=== PATIENT | male | born 1975 | race Caucasian/White ===

== ENCOUNTER 2016-06-01 04:42 | Emergency (ER) | payer BC ==
[~2016-06-01] VITALS: Ht 172.7 cm; Wt 71.7 kg
[~2016-06-01 04:42] MED LIST: METO25 PO; NOVOLOGP2 SQ; ZOFR4TAB3 SL
[2016-06-01 04:50] VITALS: BP 157/93; PULSE 104; RESP 16; TEMP 100; O2SAT 98
[2016-06-01 05:05] VITALS: BP 155/86; PULSE 94; RESP 18; O2SAT 98
[2016-06-01 05:31] VITALS: O2SAT 98
[2016-06-01 05:37] LABS: BLOOD, URINE SMALL (NEG); NITRITE,URINE NEG (NEG); PH, URINE 5.5 (5.0-8.5)
[2016-06-01 05:39] LABS: AUTOMATED NEUTROPHIL # 8.2 TH/MM3 (1.8-7.7); BASOPHIL % 0.1 % (0.0-2.0); EOSINOPHIL % 0.1 % (0.0-4.0); HEMATOCRIT 44.5 % (39.0-51.0); LYMPH % 10.4 % (9.0-44.0); LYMPHOCYTE # 1.1 TH/MM3 (1.0-4.8); MEAN CELL VOLUME 88.1 FL (80.0-100.0); MEAN CORPUSCULAR HEMOGLOBIN 29.6 PG (27.0-34.0); MEAN CORPUSCULAR HGB CONC 33.6 % (32.0-36.0); NEUT % 80.4 % (16.0-70.0); PLATELET COUNT 137 TH/MM3 (150-450); RED BLOOD COUNT 5.06 MIL/MM3 (4.50-5.90); RED CELL DISTRIBUTION WIDTH 11.6 % (11.6-17.2); WHITE BLOOD COUNT 10.2 TH/MM3 (4.0-11.0)
[2016-06-01 05:41] LABS: HEMO FLAGS DIFF FINAL
[2016-06-01] MEDS ORDERED: ONDANSETRON HCL 4 MG/2 ML VIAL IV ONE (05:45)
[2016-06-01 05:48] LABS: CHLORIDE 99 MEQ/L (98-107); POTASSIUM 4.2 MEQ/L (3.5-5.1); SODIUM (NA) 136 MEQ/L (136-145)
[2016-06-01] MEDS: SODIUM CHLOR 0.9% 1000 ML INJ 1,000 ML IV SCH ×2 (05:49→06:36)
[2016-06-01 05:51] LABS: ANION GAP 15 MEQ/L (5-15); BICARBONATE 22.4 MEQ/L (21.0-32.0)
[2016-06-01 05:52] LABS: BLOOD UREA NITROGEN 20 MG/DL (7-18); GLUCOSE,URINE 1000 OR GREATER mg/dL (NEG); KETONE, URINE 80 OR GREATER mg/dL (NEG); URINE COLOR YELLOW (YELLW/STRAW)
[2016-06-01 05:53] LABS: COMMENT (UR) CULT NOT INDICATED; CULTURE IF INDICATED CULT NOT INDICATED; RBC, URINE 0-3 /hpf (0-3); SQUAMOUS EPITHELIAL CELL URINE 0-5 /hpf (0-5); WBC, URINE 0-2 /hpf (0-5)
[2016-06-01 05:54] LABS: ALT (GPT) 17 U/L (12-78); AST (GOT) 17 U/L (15-37); GLOMERULAR FILTRATION RATE 73 ML/MIN (>89)
--- NOTE | 2016-06-01 05:54 | PD ---
HPI Chief Complaint: GI Complaint Time Seen by Provider: 05:42 Travel History International Travel<30 days: No Contact w/Intl Traveler<30days: No Traveled to known affect area: No History of Present Illness HPI The patient is a 40-year-old insulin-dependent diabetic that has been vomiting for 1 day. Yesterday morning he also had diarrhea. He has an insulin pump but his blood glucose is elevated at 321 year. He does drink beer, 5-6 beers daily and his last drink was 2 beers yesterdayWednday. He denies vomiting any blood. He has some abdominal pain to the right of the umbilicus. He still has his appendix and gallbladder. PFSH Past Medical History Arthritis: No Asthma: No Autoimmune Disease: No Blood Disorders: No Anxiety: No Depression: No Heart Rhythm Problems: No Cancer: No Cardiovascular Problems: Yes High Cholesterol: No Chemotherapy: No Chest Pain: No Congestive Heart Failure: No COPD: No Cerebrovascular Accident: No Diabetes: Yes (TYPE 1 - PT HAS INSULIN PUMP) Patient Takes Glucophage: No Diminished Hearing: No Endocrine: Yes GERD: Yes Glaucoma: No Genitourinary: No Headaches: No Hepatitis: No Hiatal Hernia: No Hypertension: Yes Immune Disorder: No Kidney Stones: No Medical other: Yes (GASTROPARESIS) Musculoskeletal: No Neurologic: No Psychiatric: No Reproductive: No Respiratory: No Immunizations Current: Yes Migraines: No Myocardial Infarction: No Radiation Therapy: No Renal Failure: No Seizures: No Sickle Cell Disease: No Sleep Apnea: No Thyroid Disease: No Ulcer: No Tetanus Vaccination: > 5 Years Influenza Vaccination: No Past Surgical History Surgical History: No Previous Surgery Abdominal Surgery: No AICD: No Appendectomy: No Arteriovenous Shunt: No Cardiac Surgery: No Cholecystectomy: No Ear Surgery: Yes (TUBES IN EARS A CHILD) Endocrine Surgery: No Eye Surgery: No Genitourinary Surgery: No Gynecologic Surgery: No Insulin Pump: Yes Joint Replacement: No Neurologic Surgery: No Oral Surgery: No Pacemaker: No Thoracic Surgery: No Other Surgery: Yes (INSULIN PUMP) Social History Alcohol Use: Yes (5 BEERS/DAY) Tobacco Use: No Substance Use: No Allergies-Medications (Allergen,Severity, Reaction): Coded Allergies: No Known Allergies (Verified , 06/01/16) Reported Meds & Prescriptions Reported Meds & Active Scripts Active Reported [blood pressure pill] Novolog (Insulin Aspart) Unknown Strength Inj Unknown Dose SQ PUMP Review of Systems Except as stated in HPI: all other systems reviewed are Neg Physical Exam Narrative GENERAL: The patient appears slightly dehydrated, alert, oriented 3 and moderate apparent distress with his abdominal pain. His vital signs show temperature 100.0 with a heart rate of 104 and blood pressure 157/93 but are otherwise normal. He does not smell of acetone or beer. SKIN: Focused skin assessment warm/dry. HEAD: Atraumatic. Normocephalic. EYES: Pupils equal and round. No scleral icterus. No injection or drainage. ENT: No nasal bleeding or discharge. Mucous membranes pink and moist. NECK: Trachea midline. No JVD. CARDIOVASCULAR: Regular rate and rhythm. No murmur appreciated. RESPIRATORY: No accessory muscle use. Clear to auscultation. Breath sounds equal bilaterally. GASTROINTESTINAL: Abdomen soft, with tenderness to direct palpation to the right of the umbilicus, nondistended. Hepatic and splenic margins not palpable. No guarding or rebound is present. MUSCULOSKELETAL: No obvious deformities. No clubbing. No cyanosis. No edema. NEUROLOGICAL: Awake and alert. No obvious cranial nerve deficits. Motor grossly within normal limits. Normal speech. PSYCHIATRIC: Appropriate mood and affect; insight and judgment normal. Data Data Last Documented VS Vital Signs Date Time Temp Pulse Resp B/P Pulse Ox O2 Delivery O2 Flow Rate FiO2 06/01/16 05:31 98 Room Air 06/01/16 05:05 94 18 155/86 06/01/16 04:50 100.0 Orders Complete Blood Count With Diff (06/01/16 05:15) Comprehensive Metabolic Panel (06/01/16 05:15) Urinalysis - C+S If Indicated (06/01/16 05:15) Iv Access Insert/Monitor (06/01/16 05:15) Oximetry (06/01/16 05:15) Lipase (06/01/16 05:15) Ondansetron Inj (Zofran Inj) (06/01/16 05:45) Sodium Chlor 0.9% 1000 Ml Inj (Ns 1000 M (06/01/16 05:45) Ecg Monitoring (06/01/16 05:54) Sodium Chloride 0.9% Flush (Ns Flush) (06/01/16 06:00) Labs Laboratory Tests Test 3/30/17 05:15 White Blood Count 10.2 TH/MM3 Red Blood Count 5.06 MIL/MM3 Hemoglobin 15.0 GM/DL Hematocrit 44.5 % Mean Corpuscular Volume 88.1 FL Mean Corpuscular Hemoglobin 29.6 PG Mean Corpuscular Hemoglobin 33.6 % Concent Red Cell Distribution Width 11.6 % Platelet Count 137 TH/MM3 Mean Platelet Volume 9.4 FL Neutrophils (%) (Auto) 80.4 % Lymphocytes (%) (Auto) 10.4 % Monocytes (%) (Auto) 9.0 % Eosinophils (%) (Auto) 0.1 % Basophils (%) (Auto) 0.1 % Neutrophils # (Auto) 8.2 TH/MM3 Lymphocytes # (Auto) 1.1 TH/MM3 Monocytes # (Auto) 0.9 TH/MM3 Eosinophils # (Auto) 0.0 TH/MM3 Basophils # (Auto) 0.0 TH/MM3 CBC Comment DIFF FINAL Differential Comment Urine Color YELLOW Urine Turbidity CLEAR Urine pH 5.5 Urine Specific [place] 1.034 Urine Protein TRACE mg/dL Urine Glucose (UA) 1000 OR GREATER mg/dL Urine Ketones 80 OR GREATER mg/dL Urine Occult Blood SMALL Urine Nitrite NEG Urine Bilirubin NEG Urine Leukocyte Esterase NEG Urine RBC 0-3 /hpf Urine WBC 0-2 /hpf Urine Squamous Epithelial 0-5 /hpf Cells Urine Bacteria NONE /hpf Microscopic Urinalysis Comment CULT NOT INDICATED Sodium Level 136 MEQ/L Potassium Level 4.2 MEQ/L Chloride Level 99 MEQ/L Carbon Dioxide Level 22.4 MEQ/L Anion Gap 15 MEQ/L Blood Urea Nitrogen 20 MG/DL Creatinine 1.10 MG/DL Estimat Glomerular Filtration 73 ML/MIN Rate Random Glucose 337 MG/DL Calcium Level 8.8 MG/DL Total Bilirubin 0.8 MG/DL Aspartate Amino Transf 17 U/L (AST/SGOT) Alanine Aminotransferase 17 U/L (ALT/SGPT) Alkaline Phosphatase 72 U/L Total Protein 7.6 GM/DL Albumin 3.9 GM/DL Lipase 85 U/L [facility] Medical Decision Making Medical Screen Exam Complete: Yes Emergency Medical Condition: Yes Medical Record Reviewed: Yes Interpretation(s) The CBC is normal except for a platelet count of 137,080% neutrophils. The complete metabolic profile shows a BUN of 20, glucose 337 but is otherwise normal. The lipase is normal. The urine shows 1000 or greater glucose, 8 or greater ketones but is otherwise normal and culture is not indicated. Differential Diagnosis Gastroenteritis, pancreatitis, dehydration, electrolyte disorder, acute appendicitisunlikely, enteric colitis, hypo-/hyperglycemia Narrative Course The patient likely has a viral gastroenteritis. He has a sensitive stomach and has a predilection for developing gastritis. The etiology this time is probably viral but his alcohol use is another possibility. Plan: The patient will discontinue alcohol and is given a prescription for Phenergan. He needs to drink clear liquids. He has adjusted his insulin pump to accommodate the slightly over 300 blood sugar that he came in with. Diagnosis Primary Impression: Viral gastroenteritis Additional Instructions: Zofran 8 mg as one tablet every 8 hours. Take it regularly for the first day or 2 so that you do not get nauseated. Follow-up with your primary care physician next week. Return to emergency department if you begin vomiting again and cannot hold on your Zofran. Med/Other Pt SpecificInfo: Prescription(s) given Scripts Ondansetron (Zofran)8 Mg Tab8 Mg PO TID #28 TAB Ref 0 Prov:Nayan Myles MD 06/01/16 Disposition: 01 DISCHARGE HOME Condition: Stable Nayan Myles MD Jun 01, 2016 05:54
[2016-06-01 05:56] LABS: TOTAL BILIRUBIN ADULT 0.8 MG/DL (0.2-1.0)
[2016-06-01 05:57] LABS: ALKALINE PHOSPHATASE 72 U/L (45-117)
[2016-06-01] MEDS ORDERED: SODIUM CHLORIDE 0.9% FLUSH 10 ML FLUSH IV FLUSH PRN (06:00)
[2016-06-01] MEDS ORDERED: blood pressure pill (06:15)
[2016-06-01] MEDS ORDERED: ZOFR8TAB PO (07:06)
[2016-06-01 07:21] VITALS: BP 147/80
== END 2016-06-01 07:23 | disposition home or self-care (01) ==
LOC: PHED 04:42
DX: A08.4 Viral intestinal infection, unspecified (principal); E10.9 Type 1 diabetes mellitus without complications; Z79.4 Long term (current) use of insulin; Z96.41 Presence of insulin pump (external) (internal)
CPT/HCPCS: 80053; 81001; 83690; 85025; 96361; 96374; 99284; J2405; J7030

== ENCOUNTER 2017-04-13 04:49 | Emergency (ER) | payer BC ==
[~2017-04-13] VITALS: Ht 172.7 cm; Wt 70.0 kg
[~2017-04-13 04:49] MED LIST changes: -METO25 PO; -ZOFR4TAB3 SL; +ZOFR8TAB PO; +blood pressure pill
[2017-04-13 04:53] VITALS: BP 166/96; PULSE 120; RESP 16; TEMP 98.2; O2SAT 97
[2017-04-13] MEDS ORDERED: LISI-519 PO (05:15)
[2017-04-13 05:38] LABS: AUTOMATED NEUTROPHIL # 10.8 TH/MM3 (1.8-7.7); BASOPHIL # 0.1 TH/MM3 (0-0.2); BASOPHIL % 0.9 % (0.0-2.0); EOSINOPHIL # 0.1 TH/MM3 (0-0.4); EOSINOPHIL % 0.4 % (0.0-4.0); HEMATOCRIT 46.8 % (39.0-51.0); HEMOGLOBIN 15.8 GM/DL (13.0-17.0); LYMPH % 9.1 % (9.0-44.0); LYMPHOCYTE # 1.2 TH/MM3 (1.0-4.8); MEAN CELL VOLUME 86.3 FL (80.0-100.0); MEAN CORPUSCULAR HEMOGLOBIN 29.1 PG (27.0-34.0); MEAN CORPUSCULAR HGB CONC 33.8 % (32.0-36.0); MEAN PLATELET VOLUME 8.4 FL (7.0-11.0); MONO % 3.6 % (0.0-8.0); MONOCYTE # 0.5 TH/MM3 (0-0.9); PLATELET COUNT 303 TH/MM3 (150-450); RED BLOOD COUNT 5.43 MIL/MM3 (4.50-5.90); RED CELL DISTRIBUTION WIDTH 11.2 % (11.6-17.2); WHITE BLOOD COUNT 12.7 TH/MM3 (4.0-11.0)
[2017-04-13] MEDS ORDERED: PROM1SUP7 RECTAL (05:38)
[2017-04-13] MEDS ORDERED: ONDANSETRON HCL 4 MG/2 ML VIAL IV ONE ×2 (05:45→06:45)
--- NOTE | 2017-04-13 05:45 | PD ---
HPI Chief Complaint: GI Complaint Time Seen by Provider: 05:34 Travel History International Travel<30 days: No Contact w/Intl Traveler<30days: No Traveled to known affect area: No History of Present Illness HPI The patient is a 41-year-old male that states he has been vomiting since Sunday. The patient is an insulin-dependent diabetic and his blood sugars have been as high as 600 at home. He denies any fever, diarrhea or cough. He denies any abdominal pain except for minimal discomfort around the epigastrium. He states he tried a Phenergan suppository and this helped slightly but he continued to vomit. PFSH Past Medical History Arthritis: No Asthma: No Autoimmune Disease: No Blood Disorders: No Anxiety: No Depression: No Heart Rhythm Problems: No Cancer: No Cardiovascular Problems: Yes High Cholesterol: No Chemotherapy: No Chest Pain: No Congestive Heart Failure: No COPD: No Cerebrovascular Accident: No Diabetes: Yes Patient Takes Glucophage: No Diminished Hearing: No Endocrine: Yes Gastrointestinal Disorders: No GERD: Yes Glaucoma: No Genitourinary: No Headaches: No Hepatitis: No Hiatal Hernia: No Heparin Induced Thrombocytopen: No Hypertension: Yes Immune Disorder: No Implanted Vascular Access Dvce: Yes Kidney Stones: No Musculoskeletal: No Neurologic: No Psychiatric: No Reproductive: No Respiratory: No Immunizations Current: Yes Migraines: No Myocardial Infarction: No Radiation Therapy: No Renal Failure: No Seizures: No Sickle Cell Disease: No Sleep Apnea: No Thyroid Disease: No Ulcer: No ?: Not Past Surgical History Abdominal Surgery: No AICD: No Appendectomy: No Arteriovenous Shunt: No Cardiac Surgery: No Cholecystectomy: No Ear Surgery: Yes (TUBES IN EARS A CHILD) Endocrine Surgery: No Eye Surgery: No Genitourinary Surgery: No Gynecologic Surgery: No Insulin Pump: Yes Joint Replacement: No Neurologic Surgery: No Oral Surgery: No Pacemaker: No Thoracic Surgery: No Other Surgery: Yes (INSULIN PUMP) Social History Alcohol Use: Yes (5 BEERS/DAY) Tobacco Use: No Substance Use: No Allergies-Medications (Allergen,Severity, Reaction): Coded Allergies: No Known Allergies (Verified Adverse Reaction, Unknown, 04/13/17) Reported Meds & Prescriptions Reported Meds & Active Scripts Active Zofran (Ondansetron HCl) 8 Mg Tab 8 Mg PO TID Reported Phenergan Supp (Promethazine HCl) 25 Mg Supp 25 Mg RECTAL Q6H PRN Lisinopril 5 Mg Tab 5 Mg PO DAILY [blood pressure pill] Novolog (Insulin Aspart) Unknown Strength Inj Unknown Dose SQ PUMP Review of Systems Except as stated in HPI: all other systems reviewed are Neg Physical Exam Narrative GENERAL: The patient is alert, moderately dehydrated appearing and slight apparent distress with his nausea and vomiting. His vital signs show blood pressure 166/96 with a heart rate of 120 but otherwise are normal. He does not smell of ketones. SKIN: Focused skin assessment warm/dry. HEAD: Atraumatic. Normocephalic. EYES: Pupils equal and round. No scleral icterus. No injection or drainage. ENT: No nasal bleeding or discharge. Mucous membranes pink and relatively dry. NECK: Trachea midline. No JVD. CARDIOVASCULAR: Regular rate and rhythm. No murmur appreciated. RESPIRATORY: No accessory muscle use. Clear to auscultation. Breath sounds equal bilaterally. GASTROINTESTINAL: Abdomen soft, with tenderness to direct palpation in the midline epigastrium and periumbilical area, nondistended. Hepatic and splenic margins not palpable. No guarding or rebound is present. MUSCULOSKELETAL: No obvious deformities. No clubbing. No cyanosis. No edema. NEUROLOGICAL: Awake and alert. No obvious cranial nerve deficits. Motor grossly within normal limits. Normal speech. PSYCHIATRIC: Appropriate mood and affect; insight and judgment normal. Data Data Last Documented VS Vital Signs Date Time Temp Pulse Resp B/P (MAP) Pulse Ox O2 Delivery O2 Flow Rate FiO2 04/13/17 06:31 98 16 177/82 (113) 100 Room Air 04/13/17 04:53 98.2 Orders Orders Complete Blood Count With Diff (04/13/17 05:28) Comprehensive Metabolic Panel (04/13/17 05:28) Iv Access Insert/Monitor (04/13/17 05:41) Ecg Monitoring (04/13/17 05:41) Oximetry (04/13/17 05:41) Ondansetron Inj (Zofran Inj) (04/13/17 05:45) Sodium Chlor 0.9% 1000 Ml Inj (Ns 1000 M (04/13/17 05:45) Lipase (04/13/17 05:30) Insulin Human Regular Inj (Novolin R Inj (04/13/17 06:45) Ondansetron Inj (Zofran Inj) (04/13/17 06:45) Sodium Chlor 0.9% 1000 Ml Inj (Ns 1000 M (04/13/17 07:00) Prochlorperazine Inj (Compazine Inj) (04/13/17 07:00) Labs Laboratory Tests Test 04/13/17 05:30 White Blood Count 12.7 TH/MM3 Red Blood Count 5.43 MIL/MM3 Hemoglobin 15.8 GM/DL Hematocrit 46.8 % Mean Corpuscular Volume 86.3 FL Mean Corpuscular Hemoglobin 29.1 PG Mean Corpuscular Hemoglobin Concent 33.8 % Red Cell Distribution Width 11.2 % Platelet Count 303 TH/MM3 Mean Platelet Volume 8.4 FL Neutrophils (%) (Auto) 86.0 % Lymphocytes (%) (Auto) 9.1 % Monocytes (%) (Auto) 3.6 % Eosinophils (%) (Auto) 0.4 % Basophils (%) (Auto) 0.9 % Neutrophils # (Auto) 10.8 TH/MM3 Lymphocytes # (Auto) 1.2 TH/MM3 Monocytes # (Auto) 0.5 TH/MM3 Eosinophils # (Auto) 0.1 TH/MM3 Basophils # (Auto) 0.1 TH/MM3 CBC Comment DIFF FINAL Differential Comment Blood Urea Nitrogen 51 MG/DL Creatinine 2.00 MG/DL Random Glucose 347 MG/DL Total Protein 8.9 GM/DL Albumin 4.6 GM/DL Calcium Level 9.1 MG/DL Alkaline Phosphatase 96 U/L Aspartate Amino Transf (AST/SGOT) 17 U/L Alanine Aminotransferase (ALT/SGPT) 15 U/L Total Bilirubin 0.9 MG/DL Sodium Level 121 MEQ/L Potassium Level 3.4 MEQ/L Chloride Level 79 MEQ/L Carbon Dioxide Level 29.4 MEQ/L Anion Gap 13 MEQ/L Estimat Glomerular Filtration Rate 37 ML/MIN Lipase 52 U/L MDM Medical Decision Making Medical Screen Exam Complete: Yes Emergency Medical Condition: Yes Medical Record Reviewed: Yes Interpretation(s) The white count is 12,700 with 86% neutrophils. The complete metabolic profile shows a sodium of 121, potassium 3.4, BUN of 51, creatinine of 2.0 with a GFR of 37. The glucose is 347 and total protein 8.9. The lipase is normal. Differential Diagnosis Gastritis, diabetic ketoacidosis, dehydration, electrolyte disorder, renal insufficiency Narrative Course It is now 0704 and the patient is still nauseated after 8 mg of Zofran IV. He was just given 10 mg of prochlorperazine IV. He is already had 2 L of saline and will be given 2 more. Nayan Myles MD Apr 13, 2017 05:45
[2017-04-13] MEDS: SODIUM CHLOR 0.9% 1000 ML INJ 1,000 ML IV SCH ×4 (05:48→08:08)
[2017-04-13 06:03] LABS: ALBUMIN 4.6 GM/DL (3.4-5.0); ALKALINE PHOSPHATASE 96 U/L (45-117); ALT (GPT) 15 U/L (12-78); AST (GOT) 17 U/L (15-37); BICARBONATE 29.4 MEQ/L (21.0-32.0); BLOOD UREA NITROGEN 51 MG/DL (7-18); CALCIUM 9.1 MG/DL (8.5-10.1); CHLORIDE 79 MEQ/L (98-107); GLOMERULAR FILTRATION RATE 37 ML/MIN (>89); GLUCOSE,RANDOM 347 MG/DL (74-106); TOTAL BILIRUBIN ADULT 0.9 MG/DL (0.2-1.0); TOTAL PROTEIN 8.9 GM/DL (6.4-8.2)
[2017-04-13 06:05] LABS: SODIUM (NA) 121 MEQ/L (136-145)
[2017-04-13 06:31] VITALS: BP 177/82; PULSE 98; RESP 16; O2SAT 100
[2017-04-13] MEDS ORDERED: INSULIN HUMAN REGULAR 1,000 UNITS/10 ML VIAL IV PUSH ONE (06:45)
[2017-04-13] MEDS ORDERED: PROCHLORPERAZINE INJ 10 MG/2 ML VIAL IV PUSH ONE (07:00)
--- NOTE | 2017-04-13 07:11 | PD ---
Data Data Last Documented VS Vital Signs Date Time Temp Pulse Resp B/P (MAP) Pulse Ox O2 Delivery O2 Flow Rate FiO2 04/13/17 09:20 88 16 167/94 (118) 98 04/13/17 06:31 Room Air 04/13/17 04:53 98.2 Orders Orders Complete Blood Count With Diff (04/13/17 05:28) Comprehensive Metabolic Panel (04/13/17 05:28) Iv Access Insert/Monitor (04/13/17 05:41) Ecg Monitoring (04/13/17 05:41) Oximetry (04/13/17 05:41) Ondansetron Inj (Zofran Inj) (04/13/17 05:45) Sodium Chlor 0.9% 1000 Ml Inj (Ns 1000 M (04/13/17 05:45) Lipase (04/13/17 05:30) Insulin Human Regular Inj (Novolin R Inj (04/13/17 06:45) Ondansetron Inj (Zofran Inj) (04/13/17 06:45) Sodium Chlor 0.9% 1000 Ml Inj (Ns 1000 M (04/13/17 07:00) Prochlorperazine Inj (Compazine Inj) (04/13/17 07:00) Basic Metabolic Panel (Bmp) (04/13/17 07:52) Protein Corrected Calcium(Pcc) (04/13/17 08:16) Calcium Carbonate Chew (Tums Chew) (04/13/17 09:00) Ed Discharge Order (04/13/17 09:06) Labs Laboratory Tests Test 04/13/17 05:30 04/13/17 08:16 White Blood Count 12.7 TH/MM3 Red Blood Count 5.43 MIL/MM3 Hemoglobin 15.8 GM/DL Hematocrit 46.8 % Mean Corpuscular Volume 86.3 FL Mean Corpuscular Hemoglobin 29.1 PG Mean Corpuscular Hemoglobin Concent 33.8 % Red Cell Distribution Width 11.2 % Platelet Count 303 TH/MM3 Mean Platelet Volume 8.4 FL Neutrophils (%) (Auto) 86.0 % Lymphocytes (%) (Auto) 9.1 % Monocytes (%) (Auto) 3.6 % Eosinophils (%) (Auto) 0.4 % Basophils (%) (Auto) 0.9 % Neutrophils # (Auto) 10.8 TH/MM3 Lymphocytes # (Auto) 1.2 TH/MM3 Monocytes # (Auto) 0.5 TH/MM3 Eosinophils # (Auto) 0.1 TH/MM3 Basophils # (Auto) 0.1 TH/MM3 CBC Comment DIFF FINAL Differential Comment Blood Urea Nitrogen 51 MG/DL 41 MG/DL Creatinine 2.00 MG/DL 1.40 MG/DL Random Glucose 347 MG/DL 154 MG/DL Total Protein 8.9 GM/DL 5.8 GM/DL Albumin 4.6 GM/DL Calcium Level 9.1 MG/DL 6.8 MG/DL Alkaline Phosphatase 96 U/L Aspartate Amino Transf (AST/SGOT) 17 U/L Alanine Aminotransferase (ALT/SGPT) 15 U/L Total Bilirubin 0.9 MG/DL Sodium Level 121 MEQ/L 132 MEQ/L Potassium Level 3.4 MEQ/L 3.5 MEQ/L Chloride Level 79 MEQ/L 97 MEQ/L Carbon Dioxide Level 29.4 MEQ/L 29.0 MEQ/L Anion Gap 13 MEQ/L 6 MEQ/L Estimat Glomerular Filtration Rate 37 ML/MIN 55 ML/MIN Lipase 52 U/L Protein Corrected Calcium 7.5 MG/DL MDM Supervised Visit with RANJANA: No Narrative Course Patient CARE soon from Dr. Myles of [facility], this is a 41-year-old diabetic male who presented with nausea vomiting. Several prior presentations for same. He was given antiemetics Compazine, 2 L of fluid according to orders but according to nursing the patient received a total of 4 L of fluid. He did have an elevated creatinine to 2.0, sugar was elevated at 350 range as well. He did have some insulin while in the emergency department. I sent a repeat BMP which shows improvement in all the electrolytes and BUN and creatinine as well as his sugar, his calcium is somewhat low now, he was given calcium carbonate in the emergency department, discussed he should take Tums for the next week, Zofran prescribed. On reassessment he has benign abdomen and states he is feeling 100 % better. No evidence of DKA. He is stable for discharge Diagnosis Primary Impression: Nausea & vomiting Additional Impression: Dehydration Med/Other Pt SpecificInfo: Prescription(s) given Scripts Ondansetron (Zofran) 4 Mg Tab 4 MG PO Q6HR Y for NAUSEA OR VOMITING, #20 TAB 0 Refills Prov: Brando Maddox MD 04/13/17 Disposition: 01 DISCHARGE HOME Condition: Stable Brando Maddox MD Apr 13, 2017 07:11
[2017-04-13 08:39] LABS: CALCIUM 6.8 MG/DL (8.5-10.1)
[2017-04-13 08:58] LABS: CALCIUM-PROTEIN CORRECTED 7.5 MG/DL (8.5-10.1); CREATININE 1.4 MG/DL (0.60-1.30); TOTAL PROTEIN 5.8 GM/DL (6.4-8.2)
[2017-04-13] MEDS ORDERED: CALCIUM CARBONATE 500 MG CHEWABLE TAB CHEW ONE (09:00)
[2017-04-13] MEDS ORDERED: ZOFR4TAB PO (09:06)
[2017-04-13 09:20] VITALS: BP 167/94
== END 2017-04-13 09:22 | disposition home or self-care (01) ==
LOC: PHED 04:49
DX: R11.2 Nausea with vomiting, unspecified (principal); E86.0 Dehydration; E11.65 Type 2 diabetes mellitus with hyperglycemia; I10 Essential (primary) hypertension; K21.9 Gastro-esophageal reflux disease without esophagitis; Z79.4 Long term (current) use of insulin
CPT/HCPCS: 80053; 83690; 84155; 85025; 96361; 96374; 96375; 96376; 99284; J0780; J1815; J2405; J7030; 80048

== ENCOUNTER 2017-05-25 11:57 | Inpatient (IN) | payer BC ==
[~2017-05-25] VITALS: Ht 172.7 cm; Wt 76.5 kg
[2017-05-25] VITALS (11 sets, daily range): BP systolic 102–184; BP diastolic 55–103; PULSE 88–132; RESP 16–22; TEMP 97.8–98.7; O2SAT 98–99
[~2017-05-25 11:57] MED LIST changes: +LISI-519 PO; +PROM1SUP7 RECTAL; +ZOFR4TAB PO
[2017-05-25] MEDS ORDERED: SODIUM CHLOR 0.9% 1000 ML INJ 1,000 ML IV ONE ×2 (13:29→14:45)
[2017-05-25] MEDS ORDERED: SODIUM CHLORIDE 0.9% FLUSH 10 ML FLUSH IV FLUSH PRN (13:30)
[2017-05-25] MEDS ORDERED: SODIUM CHLORIDE 0.9% FLUSH 10 ML FLUSH IVF PRN (13:30)
[2017-05-25] MEDS ORDERED: METOCLOPRAMIDE HCL 10 MG/2 ML VIAL IV PUSH ONE (13:30)
--- NOTE | 2017-05-25 13:31 | PD ---
HPI Chief Complaint: GI Complaint Time Seen by Provider: 13:29 Travel History International Travel<30 days: No Contact w/Intl Traveler<30days: No Traveled to known affect area: No History of Present Illness HPI 41-year-old male patient with history of diabetes, gastroparesis, DKA, presents to the ER today for 2 days history of nausea, vomiting, cannot keep anything down. He denies any fevers, diarrhea, or other symptoms. He states that his sugars have been in the 300 range. Modifying Factors: None Associated Signs & Symptoms: Nausea, vomiting, poor p.o. intake Risk Factors: Diabetic PFSH Past Medical History Arthritis: No Asthma: No Autoimmune Disease: No Blood Disorders: No Anxiety: No Depression: No Heart Rhythm Problems: No Cancer: No Cardiovascular Problems: Yes High Cholesterol: No Chemotherapy: No Chest Pain: No Congestive Heart Failure: No COPD: No Cerebrovascular Accident: No Diabetes: Yes Diminished Hearing: No Endocrine: Yes Gastrointestinal Disorders: No GERD: Yes Glaucoma: No Genitourinary: No Headaches: No Hepatitis: No Hiatal Hernia: No Heparin Induced Thrombocytopen: No Hypertension: Yes Immune Disorder: No Implanted Vascular Access Dvce: Yes Kidney Stones: No Musculoskeletal: No Neurologic: No Psychiatric: No Reproductive: No Respiratory: No Immunizations Current: Yes Migraines: No Myocardial Infarction: No Radiation Therapy: No Renal Failure: No Seizures: No Sickle Cell Disease: No Sleep Apnea: No Thyroid Disease: No Ulcer: No Past Surgical History Abdominal Surgery: No AICD: No Appendectomy: No Arteriovenous Shunt: No Cardiac Surgery: No Cholecystectomy: No Ear Surgery: Yes (TUBES IN EARS A CHILD) Endocrine Surgery: No Eye Surgery: No Genitourinary Surgery: No Gynecologic Surgery: No Insulin Pump: Yes Joint Replacement: No Neurologic Surgery: No Oral Surgery: No Pacemaker: No Thoracic Surgery: No Other Surgery: Yes (INSULIN PUMP) Social History Alcohol Use: Yes (5 BEERS/DAY) Tobacco Use: No Substance Use: No Allergies-Medications (Allergen,Severity, Reaction): Coded Allergies: No Known Allergies (Verified Adverse Reaction, Unknown, 05/25/17) Reported Meds & Prescriptions Reported Meds & Active Scripts Active Zofran (Ondansetron HCl) 8 Mg Tab 8 Mg PO TID Reported Phenergan Supp (Promethazine HCl) 25 Mg Supp 25 Mg RECTAL Q6H PRN Lisinopril 5 Mg Tab 5 Mg PO DAILY Novolog (Insulin Aspart) Unknown Strength Inj Unknown Dose SQ PUMP Review of Systems Except as stated in HPI: all other systems reviewed are Neg Physical Exam Narrative GENERAL: Well-developed thin middle-aged male patient currently in moderate distress. Awake and oriented 3. SKIN: Focused skin assessment warm/dry. HEAD: Atraumatic. Normocephalic. EYES: Pupils equal and round. No scleral icterus. No injection or drainage. ENT: No nasal bleeding or discharge. Dry mucous membranes. NECK: Trachea midline. No JVD. CARDIOVASCULAR: Regular rate and rhythm. No murmur appreciated. RESPIRATORY: No accessory muscle use. Clear to auscultation. Breath sounds equal bilaterally. GASTROINTESTINAL: Abdomen soft, non-tender, nondistended. Hepatic and splenic margins not palpable. MUSCULOSKELETAL: No obvious deformities. No clubbing. No cyanosis. No edema. NEUROLOGICAL: Awake and alert. No obvious cranial nerve deficits. Motor grossly within normal limits. Normal speech. PSYCHIATRIC: Appropriate mood and affect; insight and judgment normal. Data Data Last Documented VS Vital Signs Date Time Temp Pulse Resp B/P (MAP) Pulse Ox O2 Delivery O2 Flow Rate FiO2 05/25/17 14:41 106 20 170/90 (116) 98 Room Air 05/25/17 12:01 97.8 Orders Orders Complete Blood Count With Diff (05/25/17 13:21) Comprehensive Metabolic Panel (05/25/17 13:21) Lipase (05/25/17 13:21) Iv Access Insert/Monitor (05/25/17 13:21) Ecg Monitoring (05/25/17 13:21) Oximetry (05/25/17 13:21) Sodium Chloride 0.9% Flush (Ns Flush) (05/25/17 13:30) Beta Hydroxybutyrate (Acetone) (05/25/17 13:29) Urinalysis - C+S If Indicated (05/25/17 13:29) NPO (05/25/17 13:29) Sodium Chloride 0.9% Flush (Ns Flush) (05/25/17 13:30) Sodium Chlor 0.9% 1000 Ml Inj (Ns 1000 M (05/25/17 13:29) Abdomen, Flat & Upright (05/25/17 13:29) Metoclopramide Inj (Reglan Inj) (05/25/17 13:30) Sodium Chlor 0.9% 1000 Ml Inj (Ns 1000 M (05/25/17 14:45) Associate Quality Engineer / Telemetry [email or web address] (05/25/17 15:00) ^ Insert Iv (05/25/17 15:00) Diet Npo (05/25/17 Dinner) Sodium Chlor 0.9% 1000 Ml Inj (Ns 1000 M (05/25/17 15:00) Dext 5%-Nacl 0.9% 1000 Ml Inj (D5w-Ns 10 (05/25/17 15:00) Insulin Human Regular Inj (Novolin R Inj (05/25/17 15:00) Insulin Regular (Iv Infusion) (Novolin R (05/25/17 15:00) Potassium Chlor 40 Meq Premix (Kcl 40 Me (05/25/17 15:00) Potassium Chlor 40 Meq Premix (Kcl 40 Me (05/25/17 15:00) Potassium Chlor 20 Meq Premix (Kcl 20 Me (05/25/17 15:00) Potassium Chlor 20 Meq Premix (Kcl 20 Me (05/25/17 15:00) Potassium Chlor 20 Meq Premix (Kcl 20 Me (05/25/17 15:00) Potassium Chlor 20 Meq Premix (Kcl 20 Me (05/25/17 15:00) Potassium Chlor 20 Meq Premix (Kcl 20 Me (05/25/17 15:00) Potassium Chlor 20 Meq Premix (Kcl 20 Me (05/25/17 15:00) Sodium Bicarbonate 8.4% Inj (Sodium Bica (05/25/17 15:00) Sodium Bicarbonate 8.4% Inj (Sodium Bica (05/25/17 15:00) Sodium Phosphate Inj (Sodium Phosphate I (05/25/17 15:00) Hemoglobin (Hgb) A1c (05/25/17 15:00) Basic Metabolic Panel (Bmp) (05/25/17 20:00) Basic Metabolic Panel (Bmp) (05/26/17 02:00) Basic Metabolic Panel (Bmp) (05/26/17 08:00) Basic Metabolic Panel (Bmp) (05/26/17 14:00) Magnesium (Mg) (05/25/17 20:00) Magnesium (Mg) (05/26/17 02:00) Magnesium (Mg) (05/26/17 08:00) Magnesium (Mg) (05/26/17 14:00) Phosphorus (Po4) (05/25/17 20:00) Phosphorus (Po4) (05/26/17 02:00) Phosphorus (Po4) (05/26/17 08:00) Phosphorus (Po4) (05/26/17 14:00) Beta Hydroxybutyrate (Acetone) (05/26/17 02:00) Beta Hydroxybutyrate (Acetone) (05/26/17 14:00) Arterial Blood Gas (Abg) (05/25/17 15:11) Admit Order (Ed Use Only) (05/25/17 15:17) Labs Laboratory Tests Test 05/25/17 13:20 05/25/17 13:25 White Blood Count 15.4 TH/MM3 Red Blood Count 5.59 MIL/MM3 Hemoglobin 16.1 GM/DL Hematocrit 48.3 % Mean Corpuscular Volume 86.5 FL Mean Corpuscular Hemoglobin 28.9 PG Mean Corpuscular Hemoglobin Concent 33.4 % Red Cell Distribution Width 12.0 % Platelet Count 341 TH/MM3 Mean Platelet Volume 8.6 FL Neutrophils (%) (Auto) 93.4 % Lymphocytes (%) (Auto) 4.4 % Monocytes (%) (Auto) 1.2 % Eosinophils (%) (Auto) 0.6 % Basophils (%) (Auto) 0.4 % Neutrophils # (Auto) 14.3 TH/MM3 Lymphocytes # (Auto) 0.7 TH/MM3 Monocytes # (Auto) 0.2 TH/MM3 Eosinophils # (Auto) 0.1 TH/MM3 Basophils # (Auto) 0.1 TH/MM3 CBC Comment DIFF FINAL Differential Comment Blood Urea Nitrogen 53 MG/DL Creatinine 4.70 MG/DL Random Glucose 488 MG/DL Total Protein 10.4 GM/DL Albumin 5.0 GM/DL Calcium Level 10.6 MG/DL Alkaline Phosphatase 109 U/L Aspartate Amino Transf (AST/SGOT) 9 U/L Alanine Aminotransferase (ALT/SGPT) 12 U/L Total Bilirubin 0.5 MG/DL Sodium Level 126 MEQ/L Potassium Level 4.8 MEQ/L Chloride Level 82 MEQ/L Carbon Dioxide Level 25.0 MEQ/L Anion Gap 19 MEQ/L Estimat Glomerular Filtration Rate 14 ML/MIN Lipase 46 U/L B-Hydroxybutyrate 1.19 MMOL/L MDM Medical Decision Making Medical Screen Exam Complete: Yes Emergency Medical Condition: Yes Medical Record Reviewed: Yes Interpretation(s) Laboratory Tests Test 05/25/17 13:20 05/25/17 13:25 White Blood Count 15.4 TH/MM3 (4.0-11.0) Neutrophils (%) (Auto) 93.4 % (16.0-70.0) Lymphocytes (%) (Auto) 4.4 % (9.0-44.0) Neutrophils # (Auto) 14.3 TH/MM3 (1.8-7.7) Lymphocytes # (Auto) 0.7 TH/MM3 (1.0-4.8) Blood Urea Nitrogen 53 MG/DL (7-18) Creatinine 4.70 MG/DL (0.60-1.30) Random Glucose 488 MG/DL (74-106) Total Protein 10.4 GM/DL (6.4-8.2) Calcium Level 10.6 MG/DL (8.5-10.1) Aspartate Amino Transf (AST/SGOT) 9 U/L (15-37) Sodium Level 126 MEQ/L (136-145) Chloride Level 82 MEQ/L (98-107) Anion Gap 19 MEQ/L (5-15) Estimat Glomerular Filtration Rate 14 ML/MIN (>89) Lipase 46 U/L (73-393) B-Hydroxybutyrate 1.19 MMOL/L (0.00-0.39) Last 24 hours Impressions Abdomen X-Ray 05/25/17 1329 Signed Impressions: Service Date/Time: Thursday, May 25, 2017 13:32 - CONCLUSION: Negative for acute process. Jhon Escobedo MD FACR Differential Diagnosis Metabolic issues versus DKA versus dehydration Narrative Course Lab work shows significant dehydration with elevated BUN and creatinine. IV fluids have been initiated in the ER. His glucose levels are fairly elevated as well. Insulin was given and patient was initiated a DKA protocol. He has an insulin pump but for some reason it has not been giving him enough insulin in the pump was put on hold at this point. My plan would be to admit him for further treatment. Case is discussed with Dr. Lo for admission. Aggregate critical care time was 25 minutes. Time to perform other separately billable procedures was not included in the critical care time. My time did not include minutes spent treating any other patients simultaneously or on activities that did not directly contribute to the patient's treatment. The services I provided to this patient were to treat and/or prevent clinically significant deterioration that could result in: worsening DKA, electrolyte abnormalities, dysrhythmias, I provided critical care services requiring my management, as noted below: Chart data review, documentation time, medication orders and management, vital sign assessments/reviewing monitor data, ordering and reviewing lab tests, ordering and interpreting/reviewing x-rays and diagnostic studies, care of the patient and discussion of the patient with the admitting physicians. Diagnosis Primary Impression: DKA (diabetic ketoacidoses) Additional Impression: Nausea & vomiting Admitting Information Admitting Physician Requests: Admit Jatinder Escamilla MD May 25, 2017 13:31
[2017-05-25 13:38] LABS: AUTOMATED NEUTROPHIL # 14.3 TH/MM3 (1.8-7.7); BASOPHIL # 0.1 TH/MM3 (0-0.2); BASOPHIL % 0.4 % (0.0-2.0); EOSINOPHIL # 0.1 TH/MM3 (0-0.4); EOSINOPHIL % 0.6 % (0.0-4.0); HEMATOCRIT 48.3 % (39.0-51.0); HEMOGLOBIN 16.1 GM/DL (13.0-17.0); LYMPH % 4.4 % (9.0-44.0); LYMPHOCYTE # 0.7 TH/MM3 (1.0-4.8); MEAN CELL VOLUME 86.5 FL (80.0-100.0); MEAN CORPUSCULAR HEMOGLOBIN 28.9 PG (27.0-34.0); MEAN CORPUSCULAR HGB CONC 33.4 % (32.0-36.0); MEAN PLATELET VOLUME 8.6 FL (7.0-11.0); MONO % 1.2 % (0.0-8.0); MONOCYTE # 0.2 TH/MM3 (0-0.9); NEUT % 93.4 % (16.0-70.0); PLATELET COUNT 341 TH/MM3 (150-450); RED BLOOD COUNT 5.59 MIL/MM3 (4.50-5.90); WHITE BLOOD COUNT 15.4 TH/MM3 (4.0-11.0)
[2017-05-25 13:52] LABS: CHLORIDE 82 MEQ/L (98-107); SODIUM (NA) 126 MEQ/L (136-145)
--- NOTE | 2017-05-25 13:53 | RADRPT ---
EXAM DATE/TIME: 05/25/2017 13:32 [facility] COMPARISON: No previous studies available for comparison. INDICATIONS : Nausea and vomiting MEDICAL HISTORY : Diabetes SURGICAL HISTORY : Insulin pump ENCOUNTER: Initial ACUITY: 2 days PAIN SCORE: 0/10 LOCATION: Right lower quadrant Abdomen FINDINGS: Supine and upright views of the abdomen were performed. The abdominal bowel gas pattern is normal. No air fluid levels are seen. No abnormal masses, calcifications, or organomegaly is seen. The visu alized lower lungs are clear. No evidence of free intraperitoneal gas. The osseous structures are u nremarkable. Nipple rings are noted CONCLUSION: Negative for acute process. Jhon Escobedo MD FACR on May 25, 2017 at 13:51 Board Certified Radiologist. This report was verified electronically.
[2017-05-25 13:55] LABS: CALCIUM 10.6 MG/DL (8.5-10.1)
[2017-05-25 14:50] LABS: ALKALINE PHOSPHATASE 109 U/L (45-117); ALT (GPT) 12 U/L (12-78); AST (GOT) 9 U/L (15-37); BLOOD UREA NITROGEN 53 MG/DL (7-18); GLOMERULAR FILTRATION RATE 14 ML/MIN (>89); TOTAL BILIRUBIN ADULT 0.5 MG/DL (0.2-1.0); TOTAL PROTEIN 10.4 GM/DL (6.4-8.2)
[2017-05-25 14:53] LABS: GLUCOSE,RANDOM 488 MG/DL (74-106)
[2017-05-25] MEDS ORDERED: SODIUM BICARBONATE 8.4% SOLN 50 MEQ/50 ML VIAL IV PUSH PRN ×2 (15:00)
[2017-05-25] MEDS ORDERED: SODIUM PHOSPHATE INJ 15 MMOL in SODIUM CHLORIDE 0.9% INJ 100 ML IV PRN (15:00)
[2017-05-25] MEDS ORDERED: POTASSIUM CHLOR 40 MEQ PREMIX 100 ML IV PRN ×2 (15:00)
[2017-05-25] MEDS ORDERED: POTASSIUM CHLOR 20 MEQ PREMIX 100 ML IV PRN ×5 (15:00)
[2017-05-25] MEDS ORDERED: INSULIN HUMAN REGULAR 1,000 UNITS/10 ML VIAL IV PUSH ONE (15:00)
[2017-05-25] MEDS ORDERED: INSULIN REGULAR (IV INFUSION) 100 UNITS in SODIUM CHLORIDE 0.9% INJ 99 ML IV PRN (15:00)
--- NOTE | 2017-05-25 16:10 | HHI.HP ---
HPI Service [facility] Primary Care Physician Navjot Crocker MD Admission Diagnosis DKA/severe dehydration Diagnoses: (1) DKA (diabetic ketoacidoses) Chief Complaint: Nausea, vomiting an elevated glucose Travel History International Travel<30 Days: No Contact w/Intl Traveler <30 Da: No Traveled to Known Affected Are: No History of Present Illness This is a 41-year-old male patient with a known medical history of type 1 diabetes, gastroparesis, GERD and hypertension who presented to the ED for nausea, vomiting and inability to tolerate anything by mouth for 3 days. Patient states that he has checked his blood sugar at home and it was in the 300s for the past week. Patient denies any recent fever, chills, headache, cough, shortness of breath, abdominal pain, diarrhea or dysuria. Patient does follow with an misdraw hand in the outpatient setting and is due to see him next month. Patient does admit to roughly a 10 pound weight loss over the past week due to his sickness. Patient also admits to history of gastroparesis. PCP is Dr. Crocker. Patient presented with DKA and acute kidney injury with anion gap 19, sodium 126, random glucose 488, beta hydroxybutyrate 1.19, creatinine 4.7, BUN 53, GFR 14. Review of Systems Constitutional: COMPLAINS OF: Diaphoretic episodes, Fatigue, Change in appetite , DENIES: Fever, Chills Eyes: DENIES: Blurred vision, Diplopia Respiratory: DENIES: Cough, Sputum production, Shortness of breath Cardiovascular: DENIES: Chest pain Gastrointestinal: COMPLAINS OF: Nausea, Vomiting, DENIES: Abdominal pain, Black stools, Bloody stools, Constipation, Diarrhea Genitourinary: DENIES: Sexual dysfunction Integumentary: DENIES: Abnormal pigmentation Neurologic: DENIES: Abnormal gait Psychiatric: DENIES: Anxiety Except as stated in HPI: all other systems reviewed are Neg Past Family Social History Past Medical History Diabetes Gastroparesis Hypertension Past Surgical History Insulin pump Reported Medications Active Zofran (Ondansetron HCl) 8 Mg Tab 8 Mg PO TID Reported Phenergan Supp (Promethazine HCl) 25 Mg Supp 25 Mg RECTAL Q6H PRN Lisinopril 5 Mg Tab 5 Mg PO DAILY Novolog (Insulin Aspart) Unknown Strength Inj Unknown Dose SQ PUMP Allergies: Coded Allergies: No Known Allergies (Verified Adverse Reaction, Unknown, 05/25/17) Active Ordered Medications Current Medications Medications (Trade) Dose Ordered Sig/Miguelito Route Start Time Stop Time Status Last Admin (NS Flush) 2 ml UNSCH PRN IV FLUSH 05/25/17 13:30 (NS Flush) 2 ml UNSCH PRN IVF 05/25/17 13:30 Sodium Chloride 1,000 ml @ 250 mls/hr Q4H IV 05/25/17 15:00 Dextrose/Sodium Chloride 1,000 ml @ 200 mls/hr Q5H IV 05/25/17 15:00 Insulin Human Regular 100 units/ Sodium Chloride 100 ml @ 6.81 mls/hr TITRATE PRN IV 05/25/17 15:00 Potassium Chloride 100 ml @ 100 mls/hr Q1H PRN IV 05/25/17 15:00 Potassium Chloride 100 ml @ 50 mls/hr Q2H PRN IV 05/25/17 15:00 Potassium Chloride 100 ml @ 100 mls/hr Q1H PRN IV 05/25/17 15:00 Potassium Chloride 100 ml @ 100 mls/hr Q1H PRN IV 05/25/17 15:00 Potassium Chloride 100 ml @ 50 mls/hr Q2H PRN IV 05/25/17 15:00 Potassium Chloride 100 ml @ 50 mls/hr Q2H PRN IV 05/25/17 15:00 Potassium Chloride 100 ml @ 50 mls/hr Q2H PRN IV 05/25/17 15:00 Potassium Chloride 100 ml @ 50 mls/hr Q2H PRN IV 05/25/17 15:00 05/25/17 16:02 (Sodium Bicarbonate 8.4% Inj) 100 meq UNSCH PRN IV PUSH 05/25/17 15:00 (Sodium Bicarbonate 8.4% Inj) 50 meq UNSCH PRN IV PUSH 05/25/17 15:00 Sodium Phosphate 15 mmol/Sodium Chloride 105 ml @ 25 mls/hr UNSCH PRN IV 05/25/17 15:00 Family History Paternal medical history significant for diabetes. Social History Patient states he quit smoking over the past year. Does admit to drinking alcohol 3 times per week. Does admit to daily marijuana use. Physical Exam Vital Signs Vital Signs Date Time Temp Pulse Resp B/P (MAP) Pulse Ox O2 Delivery O2 Flow Rate FiO2 05/25/17 14:41 106 20 170/90 (116) 98 Room Air 05/25/17 13:39 20 98 Room Air 05/25/17 12:01 97.8 132 16 170/103 (125) 99 Physical Exam GENERAL: Well-developed, well-nourished patient in NAD. SKIN: Warm and dry. No rash. HEAD: Normocephalic. Atraumatic. EYES: Pupils equal and round. No scleral icterus. No injection or drainage. ENT: No nasal bleeding or discharge. Mucous membranes pink and moist. NECK: Supple. Trachea midline. CARDIOVASCULAR: Regular rate and rhythm. S1, S2 noted. No murmur appreciated. RESPIRATORY: No accessory muscle use. Clear to auscultation. Breath sounds equal bilaterally. GASTROINTESTINAL: Abdomen soft, non-tender, nondistended. Normoactive bowel sounds x4. MUSCULOSKELETAL: No obvious deformities. Extremities without clubbing, cyanosis , or edema. NEUROLOGICAL: Awake and alert. No obvious cranial nerve deficits. Motor grossly within normal limits. 5/5 muscle strength in bilateral upper and lower extremities. Normal speech. PSYCHIATRIC: Appropriate mood and affect; insight and judgment normal. Laboratory Laboratory Tests Test 05/25/17 13:20 05/25/17 13:25 05/25/17 15:28 White Blood Count 15.4 Red Blood Count 5.59 Hemoglobin 16.1 Hematocrit 48.3 Mean Corpuscular Volume 86.5 Mean Corpuscular Hemoglobin 28.9 Mean Corpuscular Hemoglobin Concent 33.4 Red Cell Distribution Width 12.0 Platelet Count 341 Mean Platelet Volume 8.6 Neutrophils (%) (Auto) 93.4 Lymphocytes (%) (Auto) 4.4 Monocytes (%) (Auto) 1.2 Eosinophils (%) (Auto) 0.6 Basophils (%) (Auto) 0.4 Neutrophils # (Auto) 14.3 Lymphocytes # (Auto) 0.7 Monocytes # (Auto) 0.2 Eosinophils # (Auto) 0.1 Basophils # (Auto) 0.1 CBC Comment DIFF FINAL Differential Comment Blood Urea Nitrogen 53 Creatinine 4.70 Random Glucose 488 Total Protein 10.4 Albumin 5.0 Calcium Level 10.6 Alkaline Phosphatase 109 Aspartate Amino Transf (AST/SGOT) 9 Alanine Aminotransferase (ALT/SGPT) 12 Total Bilirubin 0.5 Sodium Level 126 Potassium Level 4.8 Chloride Level 82 Carbon Dioxide Level 25.0 Anion Gap 19 Estimat Glomerular Filtration Rate 14 Lipase 46 B-Hydroxybutyrate 1.19 Blood Gas Puncture Site LT RADIAL Blood Gas Patient Temperature 98.6 Blood Gas HCO3 23 Blood Gas Base Excess -0.9 Blood Gas Oxygen Saturation 94 Arterial Blood pH 7.41 Arterial Blood Partial Pressure CO2 38 Arterial Blood Partial Pressure O2 92 Arterial Blood Oxygen Content 18.3 Arterial Blood Carboxyhemoglobin 1.4 Arterial Blood Methemoglobin 1.5 Blood Gas Hemoglobin 13.8 Oxygen Delivery Device ROOM AIR Blood Gas Inspired Oxygen 21 Result Diagram: 05/25/17 1320 05/25/17 1320 Imaging Last Impressions Abdomen X-Ray 05/25/17 1329 Signed Impressions: Service Date/Time: Thursday, May 25, 2017 13:32 - CONCLUSION: Negative for acute process. Jhon Escobedo MD FACR Septic Shock Reassessment Septic shock perfusion: reassessment completed Caprini VTE Risk Assessment Caprini VTE Risk Assessment: No/Low Risk (score <= 1) Caprini Risk Assessment Model Point Value = 1 Point Value = 2 Point Value = 3 Point Value = 5 Age 41-60 Minor surgery BMI > 25 kg/m2 Swollen legs Varicose veins or History of unexplained or recurrent spontaneous Oral contraceptives or hormone replacement Sepsis (< 1 month) Serious lung disease, including pneumonia (< 1 month) Abnormal pulmonary function Acute myocardial infarction Congestive heart failure (< 1 month) History of inflammatory bowel disease Medical patient at bed rest Age 61-74 Arthroscopic surgery Major open surgery (> 45 min) Laparoscopic surgery (> 45 min) Malignancy Confined to bed (> 72 hours) Immobilizing plaster cast Central venous access Age >= 75 History of VTE Family history of VTE Factor V Leiden Prothrombin [id number] Lupus anticoagulant Anticardiolipin antibodies Elevated serum homocysteine Heparin-induced thrombocytopenia Other congenital or acquired thrombophilia Stroke (< 1 month) Elective arthroplasty Hip, pelvis, or leg fracture Acute spinal cord injury (< 1 month) Prophylaxis Regimen Total Risk Factor Score Risk Level Prophylaxis Regimen 0-1 Low Early ambulation 2 Moderate Order ONE of the following: *Sequential Compression Device (SCD) *Heparin 5000 units SQ BID 3-4 Higher Order ONE of the following medications: *Heparin 5000 units SQ TID *Enoxaparin/Lovenox 40 mg SQ daily (WT < 150 kg, CrCl > 30 mL/min) *Enoxaparin/Lovenox 30 mg SQ daily (WT < 150 kg, CrCl > 10-29 mL/min) *Enoxaparin/Lovenox 30 mg SQ BID (WT < 150 kg, CrCl > 30 mL/min) AND/OR *Sequential Compression Device (SCD) 5 or more Highest Order ONE of the following medications: *Heparin 5000 units SQ TID (Preferred with Epidurals) *Enoxaparin/Lovenox 40 mg SQ daily (WT < 150 kg, CrCl > 30 mL/min) *Enoxaparin/Lovenox 30 mg SQ daily (WT < 150 kg, CrCl > 10-29 mL/min) *Enoxaparin/Lovenox 30 mg SQ BID (WT < 150 kg, CrCl > 30 mL/min) AND *Sequential Compression Device (SCD) Assessment and Plan Assessment and Plan This is a 41-year-old male patient with a known medical history of type 1 diabetes, gastroparesis, GERD and hypertension who presented to the ED for nausea, vomiting and inability to tolerate anything by mouth for 3 days. Diabetic ketoacidosis with elevated anion gap and beta hydroxybutyrate History of type 1 diabetes - Random glucose 488. Anion gap 19. Sodium 126. Potassium 4.8. Was given IV insulin in ED. - Placed on DKA protocol. Insulin drip per protocol. Monitor blood sugar trends closely. Follow BMP and CBC, watch for closure of anion gap. - Will check hemoglobin A1c. Follow. - Nausea and vomiting, Zofran as needed. - Supportive care. Acute kidney injury suspect secondary to severe dehydration with associated nausea and vomiting Nausea and vomiting and inability to tolerate p.o. intake Severe dehydration suspect secondary to above Hyponatremia secondary to above - Creatinine 4.7 on presentation. After review of records patient's creatinine was 1.4 in April. Status post 2 L NS bolus in ED. We will continue IV fluids. Obtain renal ultrasound. Check urine eosinophils. Follow BMP. - Hold Lisinopril. Avoid nephrotoxins. Hypertension: Hold home Lisinopril due to TERRY. Hydralazine IV PRN as indicated. Monitor BP trends. DVT Prophylaxis: SCDs. Physician Certification 2 Midnight Certification Type: Admission for Inpatient Services Order for Inpatient Services The services are ordered in accordance with Medicare regulations or non- Medicare payer requirements, as applicable. In the case of services not specified as inpatient-only, they are appropriately provided as inpatient services in accordance with the 2-midnight benchmark. Estimated LOS (days): 3 3 days is the estimated time the patient will need to remain in the hospital, assuming treatment plan goals are met and no additional complications. Post-Hospital Plan: Not yet determined Wendy Mccormick May 25, 2017 16:10
[2017-05-25] MEDS: SODIUM CHLOR 0.9% 1000 ML INJ 1,000 ML IV SCH ×3 (16:16→23:00)
[2017-05-25] MEDS: ONDANSETRON HCL 4 MG/2 ML VIAL IV PUSH PRN ×2 (16:40→22:55)
[2017-05-25 16:58] LABS: BLOOD, URINE LARGE (NEG); GLUCOSE,URINE 1000 OR GREATER mg/dL (NEG); KETONE, URINE NEG (NEG); NITRITE,URINE NEG (NEG); URINE COLOR YELLOW (YELLW/STRAW); URINE LEUKOCYTE ESTERASE NEG (NEG)
[2017-05-25 17:04] LABS: BILIRUBIN, URINE NEG (NEG)
[2017-05-25] MEDS ORDERED: hydrALAZINE HCL 20 MG/ML VIAL IV PUSH PRN (17:15)
[2017-05-25 17:25] LABS: WBC, URINE 0-2 /hpf (0-5)
[2017-05-25 17:26] LABS: AMORPHOUS SEDIMENT, URINE FEW
[2017-05-25] MEDS: DEXT 5%-NACL 0.9% 1000 ML INJ 1,000 ML IV SCH ×2 (18:06→23:09)
--- NOTE | 2017-05-25 19:06 | RADRPT ---
EXAM DATE/TIME: 05/25/2017 18:11 [facility] COMPARISON: No previous studies available for comparison. INDICATIONS : TERRY. MEDICAL HISTORY : Hypertension. Gastroesophageal reflux disease. Diabetes mellitus type 1. SURGICAL HISTORY : Insulin pump. ENCOUNTER: Initial ACUITY: 1 week PAIN SCORE: 0/10 LOCATION: Bilateral flank MEASUREMENTS: RIGHT KIDNEY: 11.3 x 5.9 x 5.1 cm LEFT KIDNEY: 11.0 x 6.0 x 5.4 cm FINDINGS: Mildly increased renal echogenicity. No hydronephrosis or perinephric fluid. The bladder distended. CONCLUSION: 1. Mild medical renal disease. No acute findings. Dwight Garcia MD on May 25, 2017 at 19:02 Board Certified Radiologist. This report was verified electronically.
[2017-05-25 20:56] LABS: BICARBONATE 27.4 MEQ/L (21.0-32.0); CALCIUM 8.4 MG/DL (8.5-10.1); CREATININE 2.9 MG/DL (0.60-1.30); MAGNESIUM 2.5 MG/DL (1.5-2.5)
[2017-05-25] MEDS: POTASSIUM CHLOR 20 MEQ PREMIX 100 ML IV PRN (21:32)
[2017-05-25] MEDS ORDERED: HALOPERIDOL LACTATE 5 MG/ML AMP IM PRN (21:45)
[2017-05-25] MEDS ORDERED: LORazepam 1 MG TAB PO PRN (21:45)
[2017-05-25] MEDS ORDERED: FLUMAZENIL 0.5 MG/5 ML VIAL IV PUSH PRN (21:45)
[2017-05-25] MEDS ORDERED: LORazepam 2 MG/ML VIAL IV PUSH PRN ×4 (21:45)
[2017-05-25] MEDS: LORazepam 2 MG TAB PO PRN (23:08)
[2017-05-26] VITALS (12 sets, daily range): BP systolic 98–174; BP diastolic 47–99; PULSE 75–92; RESP 16–20; TEMP 96.3–98.7; O2SAT 96–98
[2017-05-26] MEDS: DEXT 5%-NACL 0.9% 1000 ML INJ 1,000 ML IV SCH (01:00)
[2017-05-26] MEDS: LORazepam 2 MG TAB PO PRN (01:52)
[2017-05-26] MEDS: POTASSIUM CHLOR 20 MEQ PREMIX 100 ML IV PRN (02:04)
[2017-05-26 02:23] LABS: BICARBONATE 23.8 MEQ/L (21.0-32.0); CALCIUM 7.8 MG/DL (8.5-10.1); CREATININE 1.9 MG/DL (0.60-1.30); MAGNESIUM 2.1 MG/DL (1.5-2.5); PHOSPHORUS 2.4 MG/DL (2.5-4.9)
[2017-05-26] MEDS ORDERED: GLUCAGON 1 MG/ML VIAL OTHER PRN (02:45)
[2017-05-26] MEDS ORDERED: DEXTROSE 50% IN WATER 50 ML VIAL(D50) IV PUSH PRN (02:45)
[2017-05-26] MEDS ORDERED: SODIUM CHLOR 0.9% 1000 ML INJ 1,000 ML IV SCH (03:00)
[2017-05-26] MEDS ORDERED: INSULIN HUMAN REGULAR 1,000 UNITS/10 ML VIAL IV PUSH ONE (06:00)
[2017-05-26] MEDS ORDERED: INSULIN ASPART SUPPLEMENTAL SCALE SQ SCH ×2 (08:00→21:00)
[2017-05-26] MEDS: THIAMINE HCL 100 MG TAB PO SCH (08:36)
[2017-05-26] MEDS: MULTIVITAMINS/MINERALS THERAPEUTIC TAB PO SCH (08:36)
[2017-05-26] MEDS: FOLIC ACID 1 MG TAB PO SCH (08:36)
[2017-05-26 08:43] LABS: AUTOMATED NEUTROPHIL # 7.5 TH/MM3 (1.8-7.7); BASOPHIL % 0.1 % (0.0-2.0); EOSINOPHIL % 0.1 % (0.0-4.0); HEMATOCRIT 35.2 % (39.0-51.0); HEMOGLOBIN 12.3 GM/DL (13.0-17.0); LYMPHOCYTE # 1.9 TH/MM3 (1.0-4.8); MEAN CORPUSCULAR HEMOGLOBIN 30.2 PG (27.0-34.0); MEAN CORPUSCULAR HGB CONC 34.8 % (32.0-36.0); MEAN PLATELET VOLUME 8.3 FL (7.0-11.0); MONO % 7.5 % (0.0-8.0); MONOCYTE # 0.8 TH/MM3 (0-0.9); NEUT % 73.3 % (16.0-70.0); PLATELET COUNT 224 TH/MM3 (150-450); RED BLOOD COUNT 4.05 MIL/MM3 (4.50-5.90); RED CELL DISTRIBUTION WIDTH 12.2 % (11.6-17.2); WHITE BLOOD COUNT 10.2 TH/MM3 (4.0-11.0)
[2017-05-26 08:49] LABS: CHLORIDE 101 MEQ/L (98-107); SODIUM (NA) 133 MEQ/L (136-145)
[2017-05-26 08:55] LABS: GLUCOSE,RANDOM 318 MG/DL (74-106)
[2017-05-26] MEDS ORDERED: LISINOPRIL 5 MG TAB PO SCH (09:00)
[2017-05-26 09:19] LABS: ALKALINE PHOSPHATASE 62 U/L (45-117); ALT (GPT) 10 U/L (12-78); AST (GOT) 18 U/L (15-37); BLOOD UREA NITROGEN 45 MG/DL (7-18); GLOMERULAR FILTRATION RATE 47 ML/MIN (>89); TOTAL BILIRUBIN ADULT 0.6 MG/DL (0.2-1.0); TOTAL PROTEIN 6.5 GM/DL (6.4-8.2)
--- NOTE | 2017-05-26 10:16 | HHI.PR ---
Subjective Remarks Follow up DKA and TERRY. Patient seen and examined, lying in bed comfortably, eating breakfast. Patient states he feels much better and tolerating PO intake. Denies any nausea, vomiting or abdominal pain. Anion gap closed now. Will monitor BS trends. TERYR improved. Denies any dysuria. VSS. Afebrile. Objective Vitals Vital Signs Date Time Temp Pulse Resp B/P (MAP) Pulse Ox O2 Delivery O2 Flow Rate FiO2 05/26/17 08:00 96.3 85 20 135/83 (100) 98 05/26/17 04:11 98.0 86 18 159/85 (109) 97 05/26/17 03:40 88 18 100/56 (71) 98 05/26/17 03:10 83 17 103/58 (73) 97 Room Air 05/26/17 02:00 86 20 98/47 (64) 98 Room Air 05/26/17 01:00 90 20 99/53 (68) 98 Room Air 05/26/17 00:30 92 18 102/56 (71) 98 Room Air 05/26/17 00:00 89 20 149/65 (93) 98 Room Air 05/25/17 23:30 98.7 88 20 147/71 (96) 98 Room Air 05/25/17 23:00 96 20 184/87 (119) 98 Room Air 05/25/17 22:30 90 22 166/81 (109) 98 Room Air 05/25/17 22:00 98.7 88 22 136/81 (99) 98 Room Air 05/25/17 21:21 98 20 102/55 (71) Room Air 05/25/17 20:20 101 22 156/92 (113) 98 Room Air 05/25/17 19:15 100 22 148/87 (107) 98 Room Air 05/25/17 18:16 103 20 172/80 (110) 99 Room Air 05/25/17 14:41 106 20 170/90 (116) 98 Room Air 05/25/17 13:39 20 98 Room Air 05/25/17 12:01 97.8 132 16 170/103 (125) 99 I/O 05/25/17 05/25/17 05/25/17 05/26/17 05/26/17 05/26/17 06:59 14:59 22:59 06:59 14:59 22:59 Intake Total 1000 ml 1350 ml 4200.00 ml Output Total 450 ml Balance 1000 ml 1350 ml 3750.00 ml Intake IV Total 1000 ml 1350 ml 4200.00 ml Output Emesis 450 ml # Voids 1 Result Diagram: 05/26/17 0750 05/26/17 0750 Imaging Last Impressions Abdomen X-Ray 05/25/17 1329 Signed Impressions: Service Date/Time: Thursday, May 25, 2017 13:32 - CONCLUSION: Negative for acute process. Jhon Escobedo MD FACR Renal Ultrasound 05/25/17 0000 Signed Impressions: Service Date/Time: Thursday, May 25, 2017 18:11 - CONCLUSION: 1. Mild medical renal disease. No acute findings. Dwight Garcia MD Objective Remarks GENERAL: Well-developed, well-nourished patient in [facility]. SKIN: Warm and dry. No rash. HEAD: Normocephalic. Atraumatic. EYES: Pupils equal and round. No scleral icterus. No injection or drainage. ENT: No nasal bleeding or discharge. Mucous membranes pink and moist. NECK: Supple. Trachea midline. CARDIOVASCULAR: Regular rate and rhythm. S1, S2 noted. No murmur appreciated. RESPIRATORY: No accessory muscle use. Clear to auscultation. Breath sounds equal bilaterally. GASTROINTESTINAL: Abdomen soft, non-tender, nondistended. Normoactive bowel sounds x4. MUSCULOSKELETAL: No obvious deformities. Extremities without clubbing, cyanosis , or edema. NEUROLOGICAL: Awake and alert. No obvious cranial nerve deficits. Motor grossly within normal limits. 5/5 muscle strength in bilateral upper and lower extremities. Normal speech. PSYCHIATRIC: Appropriate mood and affect; insight and judgment normal. A/P Problem List: (1) DKA (diabetic ketoacidoses) ICD Code: E13.10 - Other specified diabetes mellitus with ketoacidosis without coma Status: Acute (2) Acute kidney failure ICD Code: N17.9 - Acute kidney failure, unspecified Assessment and Plan This is a 41-year-old male patient with a known medical history of type 1 diabetes, gastroparesis, GERD and hypertension who presented to the ED for nausea, vomiting and inability to tolerate anything by mouth for 3 days. Diabetic ketoacidosis with elevated anion gap and beta hydroxybutyrate History of type 1 diabetes - On presentation: Random glucose 488. Anion gap 19. Sodium 126. Potassium 4.8. Was given IV insulin in ED. - Placed on DKA protocol. Insulin drip per protocol. Monitor blood sugar trends closely. Anion gap now closed overnight, insulin drip off. Labs stabilizing. - Continue ACCU check ACHS, sliding scale insulin, cover as needed. Medium dose sliding scale. - Will check hemoglobin A1c. Pending. - Nausea and vomiting, Zofran as needed. Improved. - Supportive care. Acute kidney injury suspect secondary to severe dehydration with associated nausea and vomiting Nausea and vomiting and inability to tolerate p.o. intake Severe dehydration suspect secondary to above Hyponatremia secondary to above - Creatinine 4.7 on presentation. After review of records patient's creatinine was 1.4 in April. Status post 2 L NS bolus in ED. We will continue IV fluids. Renal ultrasound reviewed showing mild medical renal disease. No acute findings. Urine eosinophils normal. Creatinine improving, 1.6 today. - Hold Lisinopril. Avoid nephrotoxins. Hypertension: Hold home Lisinopril due to TERRY. Hydralazine IV PRN as indicated. Monitor BP trends. DVT Prophylaxis: SCDs. Discharge Planning Likely discharge tomorrow. Continue to monitor blood sugar trends. Wendy Mccormick May 26, 2017 10:16
[2017-05-26] MEDS: INSULIN ASPART SUPPLEMENTAL SCALE SQ SCH ×2 (12:00→16:58)
[2017-05-26] MEDS: traZODone HCL 50 MG TAB PO SCH (20:59)
[2017-05-27] VITALS (8 sets, daily range): BP systolic 130–190; BP diastolic 72–115; PULSE 76–113; RESP 16–22; TEMP 97.6–98.9; O2SAT 97–100
--- NOTE | 2017-05-27 07:20 | HHI.PR ---
Subjective Remarks Follow-up DKA. Patient seen and examined, Dr. Lo at bedside as well. He was demanding to leave yesterday, stating he feels much better although blood sugars are elevated. Patient states he would have better control of his blood sugar if he was using his home insulin pump. Pharmacy called, advised to use sliding scale insulin here. Blood sugars continue to be in the upper 300s. Prior to this, patient has been refusing long-acting insulin, will place him on long-acting and increase his sliding scale. Continue to monitor blood sugar trends. Patient does have nausea and vomiting today. Overnight he was eating and drinking well. TERRY improved. Hypertensive this morning, possibly secondary to agitation and vomiting. We will continue to monitor. Antihypertensives available as needed available. Objective Vitals Vital Signs Date Time Temp Pulse Resp B/P (MAP) Pulse Ox O2 Delivery O2 Flow Rate FiO2 05/27/17 04:16 98.0 79 16 141/79 (99) 98 05/27/17 00:42 97.9 76 18 130/72 (91) 97 05/26/17 22:08 97.6 81 16 143/85 (104) 98 05/26/17 19:15 75 05/26/17 16:00 97.3 88 20 174/99 (124) 98 05/26/17 12:00 96.8 88 20 161/99 (119) 96 05/26/17 08:00 96.3 85 20 135/83 (100) 98 I/O 05/26/17 05/26/17 05/26/17 05/27/17 05/27/17 05/27/17 07:00 15:00 23:00 07:00 15:00 23:00 Intake Total 4200.00 ml 960 ml Balance 4200.00 ml 960 ml Intake Oral 960 ml IV Total 4200.00 ml # Voids 1 3 4 # Bowel Movements 0 Result Diagram: 05/26/17 0750 05/26/17 0750 Imaging Last Impressions Abdomen X-Ray 05/25/17 1329 Signed Impressions: Service Date/Time: Thursday, May 25, 2017 13:32 - CONCLUSION: Negative for acute process. Jhon Escobedo MD FACR Renal Ultrasound 05/25/17 0000 Signed Impressions: Service Date/Time: Gray, May 25, 2017 18:11 - CONCLUSION: 1. Mild medical renal disease. No acute findings. Dwight Garcia MD Objective Remarks GENERAL: Well-developed, well-nourished patient. SKIN: Warm and dry. No rash. HEAD: Normocephalic. Atraumatic. EYES: Pupils equal and round. No scleral icterus. No injection or drainage. ENT: No nasal bleeding or discharge. Mucous membranes pink and moist. NECK: Supple. Trachea midline. CARDIOVASCULAR: Regular rate and rhythm. S1, S2 noted. No murmur appreciated. RESPIRATORY: No accessory muscle use. Clear to auscultation. Breath sounds equal bilaterally. GASTROINTESTINAL: Abdomen soft, non-tender, nondistended. Normoactive bowel sounds x4. MUSCULOSKELETAL: No obvious deformities. Extremities without clubbing, cyanosis , or edema. NEUROLOGICAL: Awake and alert. No obvious cranial nerve deficits. Motor grossly within normal limits. 5/5 muscle strength in bilateral upper and lower extremities. Normal speech. PSYCHIATRIC: Appropriate mood and affect; insight and judgment normal. A/P Problem List: (1) DKA (diabetic ketoacidoses) ICD Code: E13.10 - Other specified diabetes mellitus with ketoacidosis without coma Status: Acute (2) Acute kidney failure ICD Code: N17.9 - Acute kidney failure, unspecified Assessment and Plan This is a 41-year-old male patient with a known medical history of type 1 diabetes, gastroparesis, GERD and hypertension who presented to the ED for nausea, vomiting and inability to tolerate anything by mouth for 3 days. Diabetic ketoacidosis with elevated anion gap and beta hydroxybutyrate History of type 1 diabetes - On presentation: Random glucose 488. Anion gap 19. Sodium 126. Potassium 4.8. Was given IV insulin in ED. - Placed on DKA protocol. Insulin drip per protocol. Monitor blood sugar trends closely. Anion gap now closed overnight, insulin drip off. Labs stabilizing. - Continue ACCU check ACHS, sliding scale insulin, cover as needed. Medium dose sliding scale. - Will check hemoglobin A1c. Pending. - Nausea and vomiting, Zofran as needed. Improved. - Supportive care. Acute kidney injury suspect secondary to severe dehydration with associated nausea and vomiting Nausea and vomiting and inability to tolerate p.o. intake Severe dehydration suspect secondary to above Hyponatremia secondary to above - Creatinine 4.7 on presentation. After review of records patient's creatinine was 1.4 in April. Status post 2 L NS bolus in ED. We will continue IV fluids. Renal ultrasound reviewed showing mild medical renal disease. No acute findings. Urine eosinophils normal. Creatinine improving, 1.6 today. - Hold Lisinopril. Avoid nephrotoxins. Hypertension: Hold home Lisinopril due to TERRY. Hydralazine IV PRN as indicated. Monitor BP trends. DVT Prophylaxis: SCDs. Discharge Planning Likely discharge tomorrow. Continue to monitor blood sugar trends. Wendy Mccormick May 27, 2017 07:20
[2017-05-27] MEDS: ONDANSETRON HCL 4 MG/2 ML VIAL IV PUSH PRN ×2 (07:43→15:31)
[2017-05-27 07:58] LABS: BICARBONATE 23.8 MEQ/L (21.0-32.0); CALCIUM 9.4 MG/DL (8.5-10.1); CREATININE 1.2 MG/DL (0.60-1.30)
[2017-05-27] MEDS ORDERED: PROMETHAZINE HCL 12.5 MG SUPP RECTAL PRN (08:00)
[2017-05-27] MEDS: SODIUM CHLOR 0.9% 1000 ML INJ 1,000 ML IV SCH ×3 (08:15→23:32)
[2017-05-27] MEDS ORDERED: ENALAPRILAT 1.25 MG/ML VIAL IV PUSH PRN (08:15)
[2017-05-27] MEDS: INSULIN ASPART SUPPLEMENTAL SCALE SQ SCH ×4 (08:32→21:02)
[2017-05-27] MEDS: MULTIVITAMINS/MINERALS THERAPEUTIC TAB PO SCH (08:32)
[2017-05-27] MEDS: THIAMINE HCL 100 MG TAB PO SCH (08:32)
[2017-05-27] MEDS: FOLIC ACID 1 MG TAB PO SCH (08:32)
[2017-05-27] MEDS ORDERED: INSULIN DETEMIR 100 UNITS/ML VIAL SQ SCH (09:00)
[2017-05-27 11:44] LABS: HEMOGLOBIN A1C 7.9 % (4.3-6.0)
[2017-05-27] MEDS: cloNIDine HCL 0.1 MG TAB PO PRN ×2 (11:49→21:05)
[2017-05-27] MEDS ORDERED: INSULIN ASPART SUPPLEMENTAL SCALE SQ SCH (12:00)
[2017-05-27] MEDS: INSULIN ASPART 1,000 UNITS/10 ML VIAL SQ SCH ×2 (12:40→17:41)
[2017-05-27] MEDS ORDERED: amLODIPine BESYLATE 5 MG TAB PO SCH (13:30)
[2017-05-27] MEDS ORDERED: ALUMINUM/MAGNESIUM/SIMETH 30 ML CUP PO PRN (15:45)
[2017-05-27] MEDS: INSULIN DETEMIR 100 UNITS/ML VIAL SQ SCH (21:03)
[2017-05-27] MEDS: traZODone HCL 50 MG TAB PO SCH (21:04)
[2017-05-28] VITALS: BP 151/90; PULSE 75; RESP 20; TEMP 98.6; O2SAT 99
[2017-05-28] MEDS: ONDANSETRON HCL 4 MG/2 ML VIAL IV PUSH PRN (02:21)
[2017-05-28 04:00] VITALS: BP 186/94; PULSE 81; RESP 18; TEMP 96; O2SAT 98
[2017-05-28] MEDS: cloNIDine HCL 0.1 MG TAB PO PRN (04:32)
[2017-05-28 08:00] VITALS: BP 144/87; PULSE 84; RESP 19; TEMP 98.2; O2SAT 98
[2017-05-28] MEDS: INSULIN ASPART SUPPLEMENTAL SCALE SQ SCH ×2 (08:00→11:51)
[2017-05-28] MEDS: INSULIN ASPART 1,000 UNITS/10 ML VIAL SQ SCH ×2 (08:00→11:51)
[2017-05-28] MEDS: MULTIVITAMINS/MINERALS THERAPEUTIC TAB PO SCH (08:25)
[2017-05-28] MEDS: FOLIC ACID 1 MG TAB PO SCH (08:26)
[2017-05-28] MEDS: THIAMINE HCL 100 MG TAB PO SCH (08:26)
[2017-05-28] MEDS: INSULIN DETEMIR 100 UNITS/ML VIAL SQ SCH (08:27)
[2017-05-28 08:59] LABS: BICARBONATE 18.2 MEQ/L (21.0-32.0); CALCIUM 8.9 MG/DL (8.5-10.1)
--- NOTE | 2017-05-28 09:11 | HHI.PR ---
Subjective Remarks Follow-up DKA. Patient seen and examined, sitting up in bed comfortably. Patient states he feels much improved. Denies any further nausea or vomiting overnight. Has been tolerating p.o. intake. Patient just has not had much of an appetite for the food here in the hospital. Patient's blood sugars have normalized overnight although anion gap today is 18. Patient has been refusing his long-acting insulin despite education regarding the need for this to stay out of DKA. Patient will require ICU transfer and DKA protocol. Objective Vitals Vital Signs Date Time Temp Pulse Resp B/P (MAP) Pulse Ox O2 Delivery O2 Flow Rate FiO2 05/28/17 08:00 98.2 84 19 144/87 (106) 98 05/28/17 04:00 96.0 81 18 186/94 (124) 98 05/28/17 00:00 98.6 75 20 151/90 (110) 99 05/27/17 20:45 77 05/27/17 20:00 98.8 77 22 180/100 (126) 99 05/27/17 16:00 98.9 88 20 156/100 (118) 98 05/27/17 12:00 98.2 91 20 180/98 (125) 99 05/27/17 11:06 106 190/110 (136) I/O 05/27/17 05/27/17 05/27/17 05/28/17 05/28/17 05/28/17 07:00 15:00 23:00 07:00 15:00 23:00 Intake Total 480 ml 916 ml 771 ml Output Total 300 ml Balance 480 ml 916 ml 471 ml Intake Oral 480 ml 120 ml IV Total 796 ml 771 ml Output Urine Total 300 ml # Voids 4 5 1 # Bowel Movements 0 Result Diagram: 05/26/17 0750 05/28/17 0830 Imaging Last Impressions Abdomen X-Ray 05/25/17 1329 Signed Impressions: Service Date/Time: Thursday, May 25, 2017 13:32 - CONCLUSION: Negative for acute process. Jhon Escobedo MD FACR Renal Ultrasound 05/25/17 0000 Signed Impressions: Service Date/Time: Thursday, May 25, 2017 18:11 - CONCLUSION: 1. Mild medical renal disease. No acute findings. Dwight Garcia MD Objective Remarks GENERAL: Well-developed, well-nourished patient. SKIN: Warm and dry. No rash. HEAD: Normocephalic. Atraumatic. EYES: Pupils equal and round. No scleral icterus. No injection or drainage. ENT: No nasal bleeding or discharge. Mucous membranes pink and moist. NECK: Supple. Trachea midline. CARDIOVASCULAR: Regular rate and rhythm. S1, S2 noted. No murmur appreciated. RESPIRATORY: No accessory muscle use. Clear to auscultation. Breath sounds equal bilaterally. GASTROINTESTINAL: Abdomen soft, non-tender, nondistended. Normoactive bowel sounds x4. MUSCULOSKELETAL: No obvious deformities. Extremities without clubbing, cyanosis , or edema. NEUROLOGICAL: Awake and alert. No obvious cranial nerve deficits. Motor grossly within normal limits. 5/5 muscle strength in bilateral upper and lower extremities. Normal speech. PSYCHIATRIC: Appropriate mood and affect; insight and judgment normal. A/P Problem List: (1) DKA (diabetic ketoacidoses) ICD Code: E13.10 - Other specified diabetes mellitus with ketoacidosis without coma Status: Acute (2) Acute kidney failure ICD Code: N17.9 - Acute kidney failure, unspecified Assessment and Plan This is a 41-year-old male patient with a known medical history of type 1 diabetes, gastroparesis, GERD and hypertension who presented to the ED for nausea, vomiting and inability to tolerate anything by mouth for 3 days. Diabetic ketoacidosis with elevated anion gap and beta hydroxybutyrate History of type 1 diabetes - On presentation: Random glucose 488. Anion gap 19. Sodium 126. Potassium 4.8. Was given IV insulin in ED. - Placed on DKA protocol. Insulin drip per protocol. Monitor blood sugar trends closely. Labs are stabilizing initially and now patient's anion gap is 18 today. He has been refusing his long-acting Levemir. He states he thinks his blood sugar is too low for it. -Patient will be transferred to ICU for insulin drip and to start DKA protocol. - Continue ACCU check ACHS, sliding scale insulin, cover as needed. Medium dose sliding scale. -Hemoglobin A1c 7.9. - Nausea and vomiting, Zofran as needed. Improved overnight. - Supportive care. Acute kidney injury suspect secondary to severe dehydration with associated nausea and vomiting Nausea and vomiting and inability to tolerate p.o. intake Severe dehydration suspect secondary to above Hyponatremia secondary to above - Creatinine 4.7 on presentation. After review of records patient's creatinine was 1.4 in April. Status post 2 L NS bolus in ED. We will continue IV fluids. Renal ultrasound reviewed showing mild medical renal disease. No acute findings. Urine eosinophils normal. Creatinine improved, 1.0 today. - Hold Lisinopril. Avoid nephrotoxins. Hypertension: Hold home Lisinopril due to TERRY. Hydralazine IV PRN as indicated. Started on Norvasc. Clonidine as needed. Monitor BP trends. DVT Prophylaxis: SCDs. Discharge Planning Clinical improvement Wendy Mccormick May 28, 2017 09:11
[2017-05-28] MEDS ORDERED: INSULIN DETEMIR 100 UNITS/ML VIAL SQ SCH (10:30)
[2017-05-28] MEDS ORDERED: DEXT 5%-NACL 0.9% 1000 ML INJ 1,000 ML IV SCH (10:44)
[2017-05-28] MEDS ORDERED: SODIUM CHLOR 0.9% 1000 ML INJ 1,000 ML IV SCH (10:44)
[2017-05-28] MEDS ORDERED: SODIUM PHOSPHATE INJ 15 MMOL in SODIUM CHLORIDE 0.9% INJ 100 ML IV PRN (10:45)
[2017-05-28] MEDS ORDERED: POTASSIUM CHLOR 20 MEQ PREMIX 100 ML IV PRN ×6 (10:45)
[2017-05-28] MEDS ORDERED: SODIUM BICARBONATE 8.4% SOLN 50 MEQ/50 ML VIAL IV PUSH PRN ×2 (10:45)
[2017-05-28] MEDS ORDERED: MISCELLANEOUS NURSING INFORMATION XX SCH (10:45)
[2017-05-28] MEDS ORDERED: POTASSIUM CHLOR 40 MEQ PREMIX 100 ML IV PRN ×2 (10:45)
[2017-05-28] MEDS ORDERED: CHLORHEXIDINE GLUCONATE 2 % 1 PACK (2 CLOTHS) TOP PRN (10:45)
[2017-05-28] MEDS ORDERED: INSULIN REGULAR (IV INFUSION) 100 UNITS in SODIUM CHLORIDE 0.9% INJ 99 ML IV PRN (11:00)
[2017-05-28 12:00] VITALS: BP 159/90; PULSE 100; RESP 20; TEMP 97.3; O2SAT 99
[2017-05-28 15:53] LABS: CALCIUM 8.5 MG/DL (8.5-10.1)
[2017-05-28 16:00] VITALS: BP 129/86
[2017-05-28 16:00] LABS: BICARBONATE 25.7 MEQ/L (21.0-32.0); CREATININE 0.91 MG/DL (0.60-1.30); MAGNESIUM 2.1 MG/DL (1.5-2.5); PHOSPHORUS 3.1 MG/DL (2.5-4.9)
--- NOTE | 2017-05-28 17:17 | HHI.DS ---
Discharge Summary Admission Date May 25, 2017 at 15:17 Discharge Date: May 28, 2017 Admitting Diagnosis DKA/severe dehydration (1) DKA (diabetic ketoacidoses) ICD Code: E13.10 - Other specified diabetes mellitus with ketoacidosis without coma Status: Acute (2) Acute kidney failure ICD Code: N17.9 - Acute kidney failure, unspecified Procedures Please see below Brief History - From Admission This is a 41-year-old male patient with a known medical history of type 1 diabetes, gastroparesis, GERD and hypertension who presented to the ED for nausea, vomiting and inability to tolerate anything by mouth for 3 days. Patient states that he has checked his blood sugar at home and it was in the 300s for the past week. Patient denies any recent fever, chills, headache, cough, shortness of breath, abdominal pain, diarrhea or dysuria. Patient does follow with an accounts receivable executive in the outpatient setting and is due to see him next month. Patient does admit to roughly a 10 pound weight loss over the past week due to his sickness. Patient also admits to history of gastroparesis. PCP is Dr. Crocker. Patient presented with DKA and acute kidney injury with anion gap 19, sodium 126, random glucose 488, beta hydroxybutyrate 1.19, creatinine 4.7, BUN 53, GFR 14. CBC/BMP: 05/26/17 0750 05/28/17 1535 Significant Findings Laboratory Tests Test 05/25/17 20:00 05/26/17 01:50 05/26/17 07:50 05/27/17 07:10 Blood Urea Nitrogen 55 MG/DL (7-18) 50 MG/DL (7-18) 45 MG/DL (7-18) 32 MG/DL (7-18) Creatinine 2.90 MG/DL (0.60-1.30) 1.90 MG/DL (0.60-1.30) 1.60 MG/DL (0.60-1.30) Random Glucose 206 MG/DL (74-106) 270 MG/DL (74-106) 318 MG/DL (74-106) 380 MG/DL (74-106) Calcium Level 8.4 MG/DL (8.5-10.1) 7.8 MG/DL (8.5-10.1) 8.0 MG/DL (8.5-10.1) Estimat Glomerular Filtration Rate 24 ML/MIN (>89) 39 ML/MIN (>89) 47 ML/MIN (>89) 66 ML/MIN (>89) Phosphorus Level 2.4 MG/DL (2.5-4.9) Sodium Level 134 MEQ/L (136-145) 133 MEQ/L (136-145) 131 MEQ/L (136-145) Red Blood Count 4.05 MIL/MM3 (4.50-5.90) Hemoglobin 12.3 GM/DL (13.0-17.0) Hematocrit 35.2 % (39.0-51.0) Neutrophils (%) (Auto) 73.3 % (16.0-70.0) Albumin 3.0 GM/DL (3.4-5.0) Alanine Aminotransferase (ALT/SGPT) 10 U/L (12-78) Chloride Level 96 MEQ/L (98-107) Test 05/28/17 08:30 05/28/17 15:35 Blood Urea Nitrogen 21 MG/DL (7-18) 19 MG/DL (7-18) Random Glucose 370 MG/DL (74-106) 178 MG/DL (74-106) Sodium Level 128 MEQ/L (136-145) 130 MEQ/L (136-145) Chloride Level 92 MEQ/L (98-107) 94 MEQ/L (98-107) Carbon Dioxide Level 18.2 MEQ/L (21.0-32.0) Anion Gap 18 MEQ/L (5-15) Estimat Glomerular Filtration Rate 82 ML/MIN (>89) Imaging Last Impressions Abdomen X-Ray 05/25/17 1329 Signed Impressions: Service Date/Time: Thursday, May 25, 2017 13:32 - CONCLUSION: Negative for acute process. Jhon Escobedo MD FACR Renal Ultrasound 05/25/17 0000 Signed Impressions: Service Date/Time: Thursday, May 25, 2017 18:11 - CONCLUSION: 1. Mild medical renal disease. No acute findings. Dwight Garcia MD PE at Discharge GENERAL: Well-developed, well-nourished patient. SKIN: Warm and dry. No rash. HEAD: Normocephalic. Atraumatic. EYES: Pupils equal and round. No scleral icterus. No injection or drainage. ENT: No nasal bleeding or discharge. Mucous membranes pink and moist. NECK: Supple. Trachea midline. CARDIOVASCULAR: Regular rate and rhythm. S1, S2 noted. No murmur appreciated. RESPIRATORY: No accessory muscle use. Clear to auscultation. Breath sounds equal bilaterally. GASTROINTESTINAL: Abdomen soft, non-tender, nondistended. Normoactive bowel sounds x4. MUSCULOSKELETAL: No obvious deformities. Extremities without clubbing, cyanosis , or edema. NEUROLOGICAL: Awake and alert. No obvious cranial nerve deficits. Motor grossly within normal limits. 5/5 muscle strength in bilateral upper and lower extremities. Normal speech. PSYCHIATRIC: Appropriate mood and affect; insight and judgment normal. Hospital Course This is a 41-year-old male patient with a known medical history of type 1 diabetes, gastroparesis, GERD and hypertension who presented to the ED for nausea, vomiting and inability to tolerate anything by mouth for 3 days. Patient presented with DKA with elevated anion gap and elevated beta hydroxybutyrate. Patient has history of type 1 diabetes. On presentation random glucose was 488. Anion gap 19. Was given IV insulin in the ED and placed on an insulin drip. Patient quickly improved overnight and then placed on insulin sliding scale. Labs stabilized throughout throughout the hospitalization and blood sugars were monitored closely. Patient was adamant and not receiving long-acting insulin thinking his blood sugar was too low. Subsequently patient did slowly return to in diabetic ketoacidosis state and was transferred back to the ICU for an insulin drip for several hours. At the time of discharge another BMP was ordered and anion gap closed at 10. Patient is feeling well improved and tolerating p.o. intake with no nausea or vomiting. Patient is encouraged to follow-up with accounts receivable executive, he states he made an appointment for Sunday afternoon. Encouraged to continue home therapy as ordered. Patient did present with acute kidney injury suspect secondary to severe dehydration due to nausea and vomiting, creatinine was 4.7 on presentation. Patient was given IV bolus in the ED and continued on IV fluids throughout hospitalization. Renal ultrasound was done showing mild medical renal disease but no acute findings. Urine eosinophils are normal. Creatinine improved upon discharge. Lisinopril was held during hospitalization and started on Norvasc instead. Blood pressure was elevated during hospitalization this could be due to irritability due to hospitalization and also IV fluids. Encouraged follow-up with PCP to make sure Norvasc is sufficient for blood pressure management at the time of discharge patient's blood pressure was normalized. Pt Condition on Discharge: Stable Discharge Disposition: Discharge Home Discharge Time: > 30 minutes Discharge Instructions DIET: Follow Instructions for: Diabetic Diet Speech Therapy-Diet Recommends: Regular Activities you can perform: Regular-No Restrictions Wendy Mccormick May 28, 2017 17:17
--- NOTE | 2017-05-28 17:19 | HHI.DCPOC ---
Discharge Care Plan Diagnosis: (1) Nausea & vomiting (2) DKA (diabetic ketoacidoses) Goals to Promote Your Health * To prevent worsening of your condition and complications * To maintain your health at the optimal level Directions to Meet Your Goals Take your medications as prescribed Follow your dietary instruction Follow activity as directed Keep your appointments as scheduled Take your immunizations and boosters as scheduled If your symptoms worsen call your PCP, if no PCP go to Urgent Care Center or Emergency Room Smoking is Dangerous to Your Health. Avoid second hand smoke Call the 24-hour hour crisis hotline for domestic abuse at Wendy Mccormick May 28, 2017 17:19
[2017-05-28] MEDS ORDERED: AMLO10 PO (17:22)
[2017-05-29] MEDS ORDERED: CHLORHEXIDINE GLUCONATE 2 % 1 PACK (2 CLOTHS) TOP SCH (04:00)
== END 2017-05-28 18:40 | disposition home or self-care (01) | DRG 638 ==
LOC: PHED 11:57 → PHEDA 15:17 → PHEDH 19:16 → PH3A 05-26 03:48 → PHICU 05-28 13:20
PROVIDERS: ADMIT Hospitalist; ATTEND Hospitalist
DX: E10.10 Type 1 diabetes mellitus with ketoacidosis without coma (principal); N17.9 Acute kidney failure, unspecified; K31.84 Gastroparesis; E10.43 Type 1 diabetes mellitus with diabetic autonomic (poly)neuropathy; E87.1 Hypo-osmolality and hyponatremia; K21.9 Gastro-esophageal reflux disease without esophagitis; I10 Essential (primary) hypertension; E86.0 Dehydration; F12.90 Cannabis use, unspecified, uncomplicated; Z79.4 Long term (current) use of insulin; Z83.3 Family history of diabetes mellitus; Z87.891 Personal history of nicotine dependence; Z96.41 Presence of insulin pump (external) (internal)
CPT/HCPCS: 36600; 74019; 76775; 80048; 80053; 81001; 82010; 82805; 82948; 83036; 83690; 83735; 84100; 85025; 87205; 96361; 96374; J1815; J1817; J2405; J2765; J3480; J7030; J7042

== ENCOUNTER 2017-08-01 19:03 | Observation (INO) | payer BC ==
[~2017-08-01] VITALS: Ht 175.3 cm; Wt 71.4 kg
[~2017-08-01 19:03] MED LIST changes: +AMLO10 PO; -LISI-519 PO; -ZOFR4TAB PO; -blood pressure pill
[2017-08-01 19:09] VITALS: BP 206/115; PULSE 109; RESP 18; TEMP 98.8; O2SAT 98
[2017-08-01 20:06] VITALS: BP 206/116; PULSE 110; RESP 18; TEMP 98.8; O2SAT 98
[2017-08-01] MEDS ORDERED: SODIUM CHLOR 0.9% 1000 ML INJ 1,000 ML IV SCH (20:07)
[2017-08-01 20:13] VITALS: O2SAT 98
[2017-08-01] MEDS ORDERED: insulin pump SQ (20:13)
[2017-08-01] MEDS ORDERED: LISI-515 PO (20:13)
[2017-08-01] MEDS ORDERED: SODIUM CHLORIDE 0.9% FLUSH 10 ML FLUSH IV FLUSH PRN (20:15)
[2017-08-01] MEDS ORDERED: ONDANSETRON ODT 4 MG TAB PO ONE (20:15)
[2017-08-01 20:22] LABS: AUTOMATED NEUTROPHIL # 9.5 TH/MM3 (1.8-7.7); BASOPHIL % 0.3 % (0.0-2.0); HEMATOCRIT 49.8 % (39.0-51.0); HEMOGLOBIN 16.6 GM/DL (13.0-17.0); LYMPH % 12.5 % (9.0-44.0); LYMPHOCYTE # 1.4 TH/MM3 (1.0-4.8); MEAN CELL VOLUME 85.4 FL (80.0-100.0); MEAN CORPUSCULAR HEMOGLOBIN 28.4 PG (27.0-34.0); MEAN CORPUSCULAR HGB CONC 33.3 % (32.0-36.0); MEAN PLATELET VOLUME 8.6 FL (7.0-11.0); MONO % 4.8 % (0.0-8.0); MONOCYTE # 0.6 TH/MM3 (0-0.9); NEUT % 82.4 % (16.0-70.0); PLATELET COUNT 254 TH/MM3 (150-450); RED BLOOD COUNT 5.83 MIL/MM3 (4.50-5.90); RED CELL DISTRIBUTION WIDTH 12.5 % (11.6-17.2); WHITE BLOOD COUNT 11.5 TH/MM3 (4.0-11.0)
[2017-08-01 20:43] VITALS: BP 215/115; PULSE 82; RESP 20; O2SAT 99
[2017-08-01] MEDS ORDERED: LISINOPRIL 20 MG TAB PO ONE (20:45)
[2017-08-01 20:50] LABS: CHLORIDE 92 MEQ/L (98-107); SODIUM (NA) 132 MEQ/L (136-145)
[2017-08-01 20:54] LABS: ALBUMIN 4.9 GM/DL (3.4-5.0); BICARBONATE 29.1 MEQ/L (21.0-32.0); CALCIUM 9.8 MG/DL (8.5-10.1); GLUCOSE,RANDOM 257 MG/DL (74-106)
[2017-08-01 20:55] LABS: BLOOD UREA NITROGEN 53 MG/DL (7-18)
[2017-08-01 20:57] LABS: ALT (GPT) 16 U/L (12-78); AST (GOT) 15 U/L (15-37); GLOMERULAR FILTRATION RATE 37 ML/MIN (>89)
[2017-08-01 20:59] LABS: TOTAL BILIRUBIN ADULT 0.9 MG/DL (0.2-1.0); TOTAL PROTEIN 9.1 GM/DL (6.4-8.2)
[2017-08-01 21:00] LABS: ALKALINE PHOSPHATASE 93 U/L (45-117)
--- NOTE | 2017-08-01 21:09 | PD ---
HPI Chief Complaint: Diabetic Time Seen by Provider: 19:53 Travel History International Travel<30 days: No Contact w/Intl Traveler<30days: No Traveled to known affect area: No History of Present Illness HPI Is a 41-year-old male with a history of type 1 diabetes presents emergency department for evaluation of nausea and vomiting, he states that last time he had this he was found to be in DKA and had to be down much over the past 2-3 days. Feels like he significantly dehydrated. He has been using his insulin pump states sugar has been about the mid 200 range. Denies any blood in the vomit, states his been vomiting water and Gatorade but no bile, no diarrhea no blood in the stool no melena. He does also have a history of gastroparesis in the past. Denies any chest pain shortness of breath headache back pain neck pain. States symptoms are moderate, associated signs symptoms in context as above and duration as above. PFSH Past Medical History Arthritis: No Asthma: No Autoimmune Disease: No Blood Disorders: No Anxiety: No Depression: No Heart Rhythm Problems: No Cancer: No Cardiovascular Problems: Yes High Cholesterol: No Chemotherapy: No Chest Pain: No Congestive Heart Failure: No COPD: No Cerebrovascular Accident: No Diabetes: Yes (type one; insulin pump) Patient Takes Glucophage: No (type one) Diminished Hearing: No Endocrine: Yes Gastrointestinal Disorders: No GERD: Yes Glaucoma: No Genitourinary: No Headaches: No Hepatitis: No Hiatal Hernia: No Heparin Induced Thrombocytopen: No Hypertension: Yes Immune Disorder: No Implanted Vascular Access Dvce: Yes Kidney Stones: No Musculoskeletal: No Neurologic: No Psychiatric: No Reproductive: No Respiratory: No Immunizations Current: Yes Migraines: No Myocardial Infarction: No Radiation Therapy: No Renal Failure: No Seizures: No Sickle Cell Disease: No Sleep Apnea: No Thyroid Disease: No Ulcer: No Tetanus Vaccination: > 5 Years Influenza Vaccination: No Past Surgical History Abdominal Surgery: No AICD: No Appendectomy: No Arteriovenous Shunt: No Cardiac Surgery: No Cholecystectomy: No Ear Surgery: Yes (TUBES IN EARS A CHILD) Endocrine Surgery: No Eye Surgery: No Genitourinary Surgery: No Gynecologic Surgery: No Insulin Pump: Yes Joint Replacement: No Neurologic Surgery: No Oral Surgery: No Pacemaker: No Thoracic Surgery: No Other Surgery: Yes (INSULIN PUMP) Social History Alcohol Use: Yes (occ) Tobacco Use: No Substance Use: Yes (marijuana) Allergies-Medications (Allergen,Severity, Reaction): Coded Allergies: No Known Allergies (Verified Adverse Reaction, Unknown, 05/25/17) Reported Meds & Prescriptions Reported Meds & Active Scripts Active Reported Lisinopril 20 Mg Tab 20 Mg PO DAILY [insulin pump] SQ CONTINUOUS Review of Systems Except as stated in HPI: all other systems reviewed are Neg Physical Exam Narrative GENERAL: Well-developed well-nourished, no obvious distress peer SKIN: Focused skin assessment warm/dry. HEAD: Atraumatic. Normocephalic. EYES: Pupils equal and round. No scleral icterus. No injection or drainage. ENT: No nasal bleeding or discharge. Mucous membranes pink and dry.. NECK: Trachea midline. No JVD. CARDIOVASCULAR: Tachycardic with regular rhythm.. No murmur appreciated. RESPIRATORY: No accessory muscle use. Clear to auscultation. Breath sounds equal bilaterally. GASTROINTESTINAL: Abdomen soft, non-tender, nondistended. Hepatic and splenic margins not palpable. Hypoactive bowel sounds. MUSCULOSKELETAL: No obvious deformities. No clubbing. No cyanosis. No edema. NEUROLOGICAL: Awake and alert. No obvious cranial nerve deficits. Motor grossly within normal limits. Normal speech. PSYCHIATRIC: Appropriate mood and affect; insight and judgment normal. Data Data Last Documented VS Vital Signs Date Time Temp Pulse Resp B/P (MAP) Pulse Ox O2 Delivery O2 Flow Rate FiO2 08/02/17 00:30 86 20 202/98 (132) 98 08/01/17 20:13 Room Air 08/01/17 20:06 98.8 Orders Orders Complete Blood Count With Diff (08/01/17 20:07) Comprehensive Metabolic Panel (08/01/17 20:07) Lipase (08/01/17 20:07) Urinalysis - C+S If Indicated (08/01/17 20:07) Iv Access Insert/Monitor (08/01/17 20:07) Ecg Monitoring (08/01/17 20:07) Oximetry (08/01/17 20:07) Sodium Chlor 0.9% 1000 Ml Inj (Ns 1000 M (08/01/17 20:07) Sodium Chloride 0.9% Flush (Ns Flush) (08/01/17 20:15) Ondansetron Odt (Zofran Odt) (08/01/17 20:15) Lisinopril (Prinivil) (08/01/17 20:45) Sodium Chlor 0.9% 1000 Ml Inj (Ns 1000 M (08/01/17 21:30) Basic Metabolic Panel (Bmp) (08/01/17 22:33) Place In Observation (08/02/17 ) Vital Signs (Adult) Q4H (08/02/17 00:51) Activity Oob With Assistance (08/02/17 00:51) Diet 1800 Ada Cons Carb (08/02/17 Breakfast) Sodium Chlor 0.9% 1000 Ml Inj (Ns 1000 M (08/02/17 00:51) Sodium Chloride 0.9% Flush (Ns Flush) (08/02/17 01:00) Sodium Chloride 0.9% Flush (Ns Flush) (08/02/17 09:00) Acetaminophen (Tylenol) (08/02/17 01:00) Ondansetron Inj (Zofran Inj) (08/02/17 01:00) Basic Metabolic Panel (Bmp) (08/03/17 06:00) Complete Blood Count With Diff (08/03/17 06:00) Naloxone Inj (Narcan Inj) (08/02/17 01:00) Docusate Sodium-Senna (Ramona-Colace) (08/02/17 09:00) Magnesium Hydroxide Liq (Milk Of Magnesi (08/02/17 01:00) Sennosides (Senokot) (08/02/17 01:00) Bisacodyl Supp (Dulcolax Supp) (08/02/17 01:00) Lactulose Liq (Lactulose Liq) (08/02/17 01:00) ^ Other Nursing Orders (08/02/17 00:51) Labs Laboratory Tests Test 08/01/17 20:15 08/01/17 23:00 White Blood Count 11.5 TH/MM3 Red Blood Count 5.83 MIL/MM3 Hemoglobin 16.6 GM/DL Hematocrit 49.8 % Mean Corpuscular Volume 85.4 FL Mean Corpuscular Hemoglobin 28.4 PG Mean Corpuscular Hemoglobin Concent 33.3 % Red Cell Distribution Width 12.5 % Platelet Count 254 TH/MM3 Mean Platelet Volume 8.6 FL Neutrophils (%) (Auto) 82.4 % Lymphocytes (%) (Auto) 12.5 % Monocytes (%) (Auto) 4.8 % Eosinophils (%) (Auto) 0.0 % Basophils (%) (Auto) 0.3 % Neutrophils # (Auto) 9.5 TH/MM3 Lymphocytes # (Auto) 1.4 TH/MM3 Monocytes # (Auto) 0.6 TH/MM3 Eosinophils # (Auto) 0.0 TH/MM3 Basophils # (Auto) 0.0 TH/MM3 CBC Comment DIFF FINAL Differential Comment Blood Urea Nitrogen 53 MG/DL 50 MG/DL Creatinine 2.00 MG/DL 1.60 MG/DL Random Glucose 257 MG/DL 233 MG/DL Total Protein 9.1 GM/DL Albumin 4.9 GM/DL Calcium Level 9.8 MG/DL 8.2 MG/DL Alkaline Phosphatase 93 U/L Aspartate Amino Transf (AST/SGOT) 15 U/L Alanine Aminotransferase (ALT/SGPT) 16 U/L Total Bilirubin 0.9 MG/DL Sodium Level 132 MEQ/L 137 MEQ/L Potassium Level 3.9 MEQ/L 4.0 MEQ/L Chloride Level 92 MEQ/L 100 MEQ/L Carbon Dioxide Level 29.1 MEQ/L 30.3 MEQ/L Anion Gap 11 MEQ/L 7 MEQ/L Estimat Glomerular Filtration Rate 37 ML/MIN 47 ML/MIN Lipase 40 U/L Urine Color YELLOW Urine Turbidity CLEAR Urine pH 5.5 Urine Specific [place] GREATER/EQUAL 1.030 Urine Protein 100 mg/dL Urine Glucose (UA) 500 mg/dL Urine Ketones 40 mg/dL Urine Occult Blood SMALL Urine Nitrite NEG Urine Bilirubin NEG Urine Urobilinogen 0.2 MG/DL Urine Leukocyte Esterase NEG Urine RBC 0-3 /hpf Urine WBC 0-2 /hpf Urine Squamous Epithelial Cells 0-5 /hpf Urine Hyaline Casts 20-24 /lpf Urine Granular Casts 0-2 /lpf Urine Mucus FEW /lpf Microscopic Urinalysis Comment CULT NOT INDICATED MDM Medical Decision Making Medical Screen Exam Complete: Yes Emergency Medical Condition: Yes Differential Diagnosis Dehydration, acute kidney injury, DKA, electrolyte abnormality. Narrative Course Patient room to the emergency department, found to be tachycardic and hypertensive, he has not been able to take his home blood pressure medications, was given 2 L of fluid after was found to have an acute kidney injury. His creatinine went from 1.0 up to 2.0. After the 2 L of fluid is declined to 1.6. This represents an acute kidney injury. He had no acidosis and no indication for DKA. His BUN to creatinine ratio suggests a prerenal failure. I recommended the patient based on his acute kidney injury admission to the hospital and he is agreeable. Patient was discussed with Dr. Ayala. Blood pressure is significantly elevated he was given a dose of his own lisinopril. Remaining hypertensive the patient was also given a dose of hydralazine. Diagnosis Primary Impression: Acute kidney injury Additional Impressions: Diabetic gastroparesis Dehydration Admitting Information Admitting Physician Requests: Observation Condition: Stable Brando Maddox MD August 01, 2017 21:09
[2017-08-01] MEDS ORDERED: SODIUM CHLOR 0.9% 1000 ML INJ 1,000 ML IV ONE (21:30)
[2017-08-01 21:40] VITALS: BP 200/106; PULSE 87; RESP 20; O2SAT 98
[2017-08-01 22:30] VITALS: BP 201/95; PULSE 86; RESP 20; O2SAT 98
[2017-08-01 23:19] LABS: BLOOD, URINE SMALL (NEG); GLUCOSE,URINE 500 mg/dL (NEG); KETONE, URINE 40 mg/dL (NEG); NITRITE,URINE NEG (NEG); PH, URINE 5.5 (5.0-8.5); URINE COLOR YELLOW (YELLW/STRAW); URINE LEUKOCYTE ESTERASE NEG (NEG)
[2017-08-01 23:22] LABS: BILIRUBIN, URINE NEG (NEG)
[2017-08-01 23:26] LABS: MUCUS URINE FEW /lpf (OCC)
[2017-08-01 23:28] LABS: RBC, URINE 0-3 /hpf (0-3); SQUAMOUS EPITHELIAL CELL URINE 0-5 /hpf (0-5); WBC, URINE 0-2 /hpf (0-5)
[2017-08-02] VITALS (9 sets, daily range): BP systolic 130–202; BP diastolic 77–100; PULSE 75–114; RESP 16–20; TEMP 98.3–99.2; O2SAT 97–99
[2017-08-02 00:25] LABS: BICARBONATE 30.3 MEQ/L (21.0-32.0); CALCIUM 8.2 MG/DL (8.5-10.1); CREATININE 1.6 MG/DL (0.60-1.30)
[2017-08-02] MEDS ORDERED: NALOXONE HCL 0.4 MG/ML AMP IV PUSH PRN (01:00)
[2017-08-02] MEDS ORDERED: hydrALAZINE HCL 20 MG/ML VIAL IV PUSH ONE (01:00)
[2017-08-02] MEDS ORDERED: BISACODYL 10 MG SUPP RECTAL PRN (01:00)
[2017-08-02] MEDS ORDERED: LACTULOSE SYRUP 20 GM/30 ML CUP PO PRN (01:00)
[2017-08-02] MEDS ORDERED: SODIUM CHLORIDE 0.9% FLUSH 10 ML FLUSH IV FLUSH PRN (01:00)
[2017-08-02] MEDS ORDERED: MAGNESIUM HYDROXIDE SUSP 30 ML CUP PO PRN (01:00)
[2017-08-02] MEDS ORDERED: SENNOSIDES 8.6 MG TAB PO PRN (01:00)
[2017-08-02] MEDS ORDERED: ACETAMINOPHEN 325 MG TAB PO PRN (01:00)
[2017-08-02] MEDS: SODIUM CHLOR 0.9% 1000 ML INJ 1,000 ML IV SCH ×3 (01:25→17:23)
[2017-08-02] MEDS: ONDANSETRON HCL 4 MG/2 ML VIAL IVP PRN ×4 (01:44→21:29)
[2017-08-02] MEDS ORDERED: DOCUSATE SODIUM 50 MG/SENNA 8.6 MG TAB PO SCH (09:00)
[2017-08-02] MEDS: SODIUM CHLORIDE 0.9% FLUSH 10 ML FLUSH IV FLUSH SCH ×2 (09:19→20:10)
[2017-08-02] MEDS: LISINOPRIL 20 MG TAB PO SCH (09:20)
--- NOTE | 2017-08-02 10:35 | HHI.HP ---
[facility] Service [facility] Hospitalists Primary Care Physician Navjot Crocker MD Admission Diagnosis TERRY, Dehydration, Gastroparesis. Diagnoses: (1) Acute kidney injury (2) Dehydration (3) Nausea & vomiting Chief Complaint: Young vomiting Dehydration Travel History International Travel<30 Days: No Contact w/Intl Traveler <30 Da: No Traveled to Known Affected Are: No History of Present Illness Written by Wendy Mccormick, acting as scribe for Dr. Delgadillo on 08/02/17 at 10:35. This is a pleasant 41-year-old male patient with a known medical history of diabetes type 1 with insulin pump, diabetic gastroparesis and history of GERD who presented to the ED with complaints of nausea and vomiting as well as dehydration for 3 days. Patient states he has been unable to keep anything down without nausea and vomiting. 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 Patient does have type 1 diabetes with an insulin pump, patient reports that the highest blood sugar obtained the last few days was 290. He denies any fevers, chills, cough, shortness of breath, chest pain, headache, abdominal pain, diarrhea or dysuria. Patient was hospitalized back in May for DKA, was placed on insulin drip and eventually anion gap closed and symptoms improved patient was discharged home stable. Patient's PCP is Dr. Crocker. He does follow with the [facility] for management of his type 1 diabetes. Patient presented with acute kidney injury with creatinine 2.0 and GFR 37. Has improved overnight with IV hydration to 1.6. Blood pressure is significantly elevated, he has not taken his blood pressure medicines for the past several days, will restart lisinopril with expectant improvement in his creatinine. UA negative. Review of Systems Constitutional: COMPLAINS OF: Diaphoretic episodes, Fatigue, DENIES: Fever, Chills Eyes: DENIES: Diplopia Respiratory: DENIES: Cough, Sputum production, Shortness of breath Cardiovascular: DENIES: Chest pain, Palpitations Gastrointestinal: COMPLAINS OF: Nausea, Vomiting, DENIES: Abdominal pain, Black stools, Bloody stools, Constipation, Diarrhea Musculoskeletal: DENIES: Joint pain Immunologic/allergic: DENIES: Eczema Neurologic: DENIES: Abnormal gait Psychiatric: DENIES: Anxiety Except as stated in HPI: all other systems reviewed are Neg Past Family Social History Past Medical History Type 1 diabetes mellitus with insulin pump GERD Diabetic gastroparesis Past Surgical History Eustachian tubes as a child Reported Medications Active Reported Lisinopril 20 Mg Tab 20 Mg PO DAILY [insulin pump] SQ CONTINUOUS Allergies: Coded Allergies: No Known Allergies (Verified Adverse Reaction, Unknown, 05/25/17) Active Ordered Medications Current Medications Medications (Trade) Dose Ordered Sig/Miguelito Route Start Time Stop Time Status Last Admin Sodium Chloride 1,000 ml @ 100 mls/hr Q10H IV 08/02/17 00:51 08/02/17 09:20 (NS Flush) 2 ml UNSCH PRN IV FLUSH 08/02/17 01:00 (NS Flush) 2 ml BID IV FLUSH 08/02/17 09:00 08/02/17 09:19 (Tylenol) 650 mg Q4H PRN PO 08/02/17 01:00 (Zofran Inj) 4 mg Q6H PRN IVP 08/02/17 01:00 08/02/17 09:32 (Narcan Inj) 0.4 mg UNSCH PRN IV PUSH 08/02/17 01:00 (Ramona-Colace) 1 tab BID PO 08/02/17 09:00 (Milk Of Magnesia Liq) 30 ml Q12H PRN PO 08/02/17 01:00 (Senokot) 17.2 mg Q12H PRN PO 08/02/17 01:00 (Dulcolax Supp) 10 mg DAILY PRN RECTAL 08/02/17 01:00 (Lactulose Liq) 30 ml DAILY PRN PO 08/02/17 01:00 (Prinivil) 20 mg DAILY PO 08/02/17 09:00 08/02/17 09:20 Family History Paternal medical history significant for diabetes. Social History Patient states he quit smoking over the past year. Does admit to drinking alcohol 3 times per week. Does admit to daily marijuana use. Physical Exam Vital Signs Vital Signs Date Time Temp Pulse Resp B/P (MAP) Pulse Ox O2 Delivery O2 Flow Rate FiO2 08/02/17 08:40 98.7 91 20 150/80 (103) 98 08/02/17 07:55 08/02/17 07:15 112 16 185/89 (121) 98 Room Air 08/02/17 07:15 111 16 98 Room Air 08/02/17 04:32 107 20 179/87 (117) 98 08/02/17 02:38 114 20 170/92 (118) 97 08/02/17 01:45 105 20 170/94 (119) 97 Room Air 08/02/17 00:30 86 20 202/98 (132) 98 08/01/17 22:30 86 20 201/95 (130) 98 08/01/17 21:40 87 20 200/106 (137) 98 08/01/17 20:43 82 20 215/115 (148) 99 08/01/17 20:20 87 20 95 08/01/17 20:13 98 Room Air 08/01/17 20:08 98 Room Air 08/01/17 20:06 98.8 110 18 206/116 (146) 98 08/01/17 19:09 98.8 109 18 206/115 (145) 98 Physical Exam GENERAL: Well-developed, well-nourished patient in NAD. SKIN: Warm and dry. No rash. HEAD: Normocephalic. Atraumatic. EYES: Pupils equal and round. No scleral icterus. No injection or drainage. ENT: No nasal bleeding or discharge. Mucous membranes pink and moist. NECK: Supple. Trachea midline. CARDIOVASCULAR: Regular rate and rhythm. S1, S2 noted. No murmur appreciated. RESPIRATORY: No accessory muscle use. Clear to auscultation. Breath sounds equal bilaterally. GASTROINTESTINAL: Abdomen soft, non-tender, nondistended. Normoactive bowel sounds x4. MUSCULOSKELETAL: No obvious deformities. Extremities without clubbing, cyanosis , or edema. NEUROLOGICAL: Awake and alert. No obvious cranial nerve deficits. Motor grossly within normal limits. 5/5 muscle strength in bilateral upper and lower extremities. Normal speech. PSYCHIATRIC: Appropriate mood and affect; insight and judgment normal. Laboratory Laboratory Tests Test 08/01/17 20:15 08/01/17 23:00 White Blood Count 11.5 Red Blood Count 5.83 Hemoglobin 16.6 Hematocrit 49.8 Mean Corpuscular Volume 85.4 Mean Corpuscular Hemoglobin 28.4 Mean Corpuscular Hemoglobin Concent 33.3 Red Cell Distribution Width 12.5 Platelet Count 254 Mean Platelet Volume 8.6 Neutrophils (%) (Auto) 82.4 Lymphocytes (%) (Auto) 12.5 Monocytes (%) (Auto) 4.8 Eosinophils (%) (Auto) 0.0 Basophils (%) (Auto) 0.3 Neutrophils # (Auto) 9.5 Lymphocytes # (Auto) 1.4 Monocytes # (Auto) 0.6 Eosinophils # (Auto) 0.0 Basophils # (Auto) 0.0 CBC Comment DIFF FINAL Differential Comment Blood Urea Nitrogen 53 50 Creatinine 2.00 1.60 Random Glucose 257 233 Total Protein 9.1 Albumin 4.9 Calcium Level 9.8 8.2 Alkaline Phosphatase 93 Aspartate Amino Transf (AST/SGOT) 15 Alanine Aminotransferase (ALT/SGPT) 16 Total Bilirubin 0.9 Sodium Level 132 137 Potassium Level 3.9 4.0 Chloride Level 92 100 Carbon Dioxide Level 29.1 30.3 Anion Gap 11 7 Estimat Glomerular Filtration Rate 37 47 Lipase 40 Urine Color YELLOW Urine Turbidity CLEAR Urine pH 5.5 Urine Specific [place] GREATER/EQUAL 1.030 Urine Protein 100 Urine Glucose (UA) 500 Urine Ketones 40 Urine Occult Blood SMALL Urine Nitrite NEG Urine Bilirubin NEG Urine Urobilinogen 0.2 Urine Leukocyte Esterase NEG Urine RBC 0-3 Urine WBC 0-2 Urine Squamous Epithelial Cells 0-5 Urine Hyaline Casts 20-24 Urine Granular Casts 0-2 Urine Mucus FEW Microscopic Urinalysis Comment CULT NOT INDICATED Result Diagram: 08/01/17201408/01/17 2300 Septic Shock Reassessment Septic shock perfusion: reassessment completed Caprini VTE Risk Assessment Caprini VTE Risk Assessment: No/Low Risk (score <= 1) Caprini Risk Assessment Model Point Value = 1 Point Value = 2 Point Value = 3 Point Value = 5 Age 41-60 Minor surgery BMI > 25 kg/m2 Swollen legs Varicose veins or History of unexplained or recurrent spontaneous Oral contraceptives or hormone replacement Sepsis (< 1 month) Serious lung disease, including pneumonia (< 1 month) Abnormal pulmonary function Acute myocardial infarction Congestive heart failure (< 1 month) History of inflammatory bowel disease Medical patient at bed rest Age 61-74 Arthroscopic surgery Major open surgery (> 45 min) Laparoscopic surgery (> 45 min) Malignancy Confined to bed (> 72 hours) Immobilizing plaster cast Central venous access Age >= 75 History of VTE Family history of VTE Factor V Leiden Prothrombin [id number] Lupus anticoagulant Anticardiolipin antibodies Elevated serum homocysteine Heparin-induced thrombocytopenia Other congenital or acquired thrombophilia Stroke (< 1 month) Elective arthroplasty Hip, pelvis, or leg fracture Acute spinal cord injury (< 1 month) Prophylaxis Regimen Total Risk Factor Score Risk Level Prophylaxis Regimen 0-1 Low Early ambulation 2 Moderate Order ONE of the following: *Sequential Compression Device (SCD) *Heparin 5000 units SQ BID 3-4 Higher Order ONE of the following medications: *Heparin 5000 units SQ TID *Enoxaparin/Lovenox 40 mg SQ daily (WT < 150 kg, CrCl > 30 mL/min) *Enoxaparin/Lovenox 30 mg SQ daily (WT < 150 kg, CrCl > 10-29 mL/min) *Enoxaparin/Lovenox 30 mg SQ BID (WT < 150 kg, CrCl > 30 mL/min) AND/OR *Sequential Compression Device (SCD) 5 or more Highest Order ONE of the following medications: *Heparin 5000 units SQ TID (Preferred with Epidurals) *Enoxaparin/Lovenox 40 mg SQ daily (WT < 150 kg, CrCl > 30 mL/min) *Enoxaparin/Lovenox 30 mg SQ daily (WT < 150 kg, CrCl > 10-29 mL/min) *Enoxaparin/Lovenox 30 mg SQ BID (WT < 150 kg, CrCl > 30 mL/min) AND *Sequential Compression Device (SCD) Assessment and Plan Assessment and Plan This is a pleasant 41-year-old male patient with a known medical history of diabetes type 1 with insulin pump, diabetic gastroparesis and history of GERD who presented to the ED with complaints of nausea and vomiting as well as dehydration for 3 days. Acute kidney injury suspect secondary to severe dehydration with associated nausea and vomiting Nausea and vomiting and inability to tolerate p.o. intake Severe dehydration suspect secondary to above Hyponatremia secondary to above - Creatinine 2.0 on presentation. After review of records patient's creatinine was 4.7 on presentation to hospital with dehydration and improved by discharge. Patient's baseline is 1.0. - Status post 2 L NS bolus in ED. Will continue IV fluids. - Na improved from 132 to 137. - Avoid nephrotoxins. - Renal function will likely improve with home Lisinopril. Continue and monitor BMP. Type 1 Diabetes Mellitus - Not in DKA. Anion gap closed. Random glucose 200s. Will continue patient on insulin pump. Monitor blood sugar trends. ADA diet. Gastroparesis -Start Reglan 10mg HS Hypertension: Continue home Lisinopril. Follow BP trends. DVT Prophylaxis: SCDs. This note was transcribed by marilynn Mccormick . I, Dr. Srinivas Delgadillo personally performed the history, physical exam, and medical decision making; and confirmed the accuracy of the information in the transcribed note. Authenticated by Dr. Srinivas Delgadillo on 08/02/17 at 10:35. Code Status Full code Discussed Condition With Patient Wendy Mccormick August 02, 2017 10:35 Srinivas Delgadillo MD August 02, 2017 10:36
[2017-08-02] MEDS ORDERED: DEXTROSE 50% IN WATER 50 ML VIAL(D50) IV PUSH PRN (11:00)
[2017-08-02] MEDS ORDERED: GLUCAGON 1 MG/ML VIAL OTHER PRN (11:00)
[2017-08-02] MEDS: METOCLOPRAMIDE HCL 10 MG TAB PO SCH ×2 (17:11→20:10)
[2017-08-02] MEDS ORDERED: cloNIDine HCL 0.1 MG TAB PO PRN (21:15)
[2017-08-03] VITALS: BP 124/81; PULSE 84; RESP 20; TEMP 98.4; O2SAT 97
[2017-08-03] MEDS: SODIUM CHLOR 0.9% 1000 ML INJ 1,000 ML IV SCH ×2 (03:44→08:51)
[2017-08-03] MEDS: ONDANSETRON HCL 4 MG/2 ML VIAL IVP PRN (03:44)
[2017-08-03 06:04] LABS: AUTOMATED NEUTROPHIL # 3.6 TH/MM3 (1.8-7.7); BASOPHIL # 0.1 TH/MM3 (0-0.2); EOSINOPHIL % 0.3 % (0.0-4.0); HEMATOCRIT 39.2 % (39.0-51.0); HEMOGLOBIN 13.5 GM/DL (13.0-17.0); LYMPH % 39.4 % (9.0-44.0); LYMPHOCYTE # 2.7 TH/MM3 (1.0-4.8); MEAN CELL VOLUME 85.9 FL (80.0-100.0); MEAN CORPUSCULAR HEMOGLOBIN 29.5 PG (27.0-34.0); MEAN CORPUSCULAR HGB CONC 34.3 % (32.0-36.0); MEAN PLATELET VOLUME 9.2 FL (7.0-11.0); MONO % 6.1 % (0.0-8.0); MONOCYTE # 0.4 TH/MM3 (0-0.9); NEUT % 53.2 % (16.0-70.0); PLATELET COUNT 186 TH/MM3 (150-450); RED BLOOD COUNT 4.57 MIL/MM3 (4.50-5.90); RED CELL DISTRIBUTION WIDTH 12.6 % (11.6-17.2); WHITE BLOOD COUNT 6.8 TH/MM3 (4.0-11.0)
[2017-08-03 06:26] LABS: CALCIUM 8.2 MG/DL (8.5-10.1)
[2017-08-03 06:27] LABS: BICARBONATE 30.1 MEQ/L (21.0-32.0)
[2017-08-03 07:07] LABS: CREATININE 0.92 MG/DL (0.60-1.30)
--- NOTE | 2017-08-03 07:49 | HHI.DCPOC ---
Discharge Care Plan Diagnosis: (1) Acute kidney injury (2) Nausea & vomiting (3) Dehydration (4) Diabetes (5) Hypertension Goals to Promote Your Health * To prevent worsening of your condition and complications * To maintain your health at the optimal level Directions to Meet Your Goals Take your medications as prescribed Follow your dietary instruction Follow activity as directed Keep your appointments as scheduled Take your immunizations and boosters as scheduled If your symptoms worsen call your PCP, if no PCP go to Urgent Care Center or Emergency Room Smoking is Dangerous to Your Health. Avoid second hand smoke Call the 24-hour hour crisis hotline for domestic abuse at Wendy Mccormick Aug 03, 2017 07:49
[2017-08-03 08:00] VITALS: BP 168/86; PULSE 76; RESP 18; TEMP 99; O2SAT 97
[2017-08-03] MEDS: METOCLOPRAMIDE HCL 10 MG TAB PO SCH (08:02)
[2017-08-03] MEDS: SODIUM CHLORIDE 0.9% FLUSH 10 ML FLUSH IV FLUSH SCH (08:44)
[2017-08-03] MEDS: LISINOPRIL 20 MG TAB PO SCH (08:51)
--- NOTE | 2017-08-03 08:57 | HHI.PR ---
Subjective Remarks Follow-up acute on chronic kidney disease/dehydration/gastroparesis August 03, 2017-patient seen and examined, had episode of emesis last night otherwise stable this morning renal indices improved. Currently afebrile. Objective Vitals Vital Signs Date Time Temp Pulse Resp B/P (MAP) Pulse Ox O2 Delivery O2 Flow Rate FiO2 08/03/17 00:00 98.4 84 20 124/81 (95) 97 08/02/17 20:00 98.3 75 20 185/100 (128) 99 08/02/17 15:50 99.2 85 20 138/91 (107) 97 08/02/17 11:50 99.1 81 20 130/77 (94) 97 I/O 08/02/17 08/02/17 08/02/17 08/03/17 08/03/17 08/03/17 07:00 15:00 23:00 07:00 15:00 23:00 Intake Total 1000 ml 1300 ml 1320 ml 1370 ml Output Total 1100 ml 651 ml 1175 ml Balance -100 ml 1300 ml 669 ml 195 ml Intake Oral 300 ml 320 ml 120 ml IV Total 1000 ml 1000 ml 1000 ml 1250 ml Output Urine Total 900 ml 650 ml 1175 ml Emesis 200 ml 1 ml # Voids 3 1 1 # Bowel Movements 0 Result Diagram: 08/03/1751608/03/17516 Objective Remarks GENERAL: NAD SKIN: Warm and dry. HEAD: Normocephalic. EYES: No scleral icterus. No injection or drainage. NECK: Supple, trachea midline. No JVD or lymphadenopathy. CARDIOVASCULAR: Regular rate and rhythm without murmurs, gallops, or rubs. RESPIRATORY: Breath sounds equal bilaterally. No accessory muscle use. GASTROINTESTINAL: Abdomen soft, non-tender, nondistended. MUSCULOSKELETAL: No cyanosis, or edema. BACK: Nontender without obvious deformity. No CVA tenderness. A/P Problem List: (1) Acute kidney injury ICD Code: N17.9 - Acute kidney failure, unspecified Status: Acute (2) Dehydration ICD Code: E86.0 - Dehydration Status: Acute (3) Nausea & vomiting ICD Code: R11.2 - Nausea with vomiting, unspecified Status: Acute Assessment and Plan 41-year-old man with Acute kidney injury suspect secondary to severe dehydration with associated nausea and vomiting Nausea and vomiting and inability to tolerate p.o. intake Severe dehydration suspect secondary to above Hyponatremia-resolved -Renal indices improved with IV fluid hydration - Avoid nephrotoxins. - Renal function will likely improve with home Lisinopril. Continue and monitor BMP. Type 1 Diabetes Mellitus - Not in DKA. Anion gap closed. continue patient on insulin pump. Monitor blood sugar trends. ADA diet. Gastroparesis -Continue Reglan 10mg HS Hypertension: Continue home Lisinopril. Follow BP trends. DVT Prophylaxis: SCDs. Discharge Planning Discharge patient to home Condition on discharge: Improved ADA Diet as tolerated Ad Barbara activity Rx written: Reglan 10 mg before meals at bedtime Follow-up with primary care physician in 1 week Srinivas Delgadillo MD Aug 03, 2017 08:57
[2017-08-03] MEDS ORDERED: METO10TA PO (08:58)
== END 2017-08-03 10:16 | disposition home or self-care (01) ==
LOC: PHED 19:03 → PHEDA 08-02 00:52 → PHEDH 08-02 05:12 → PH3A 08-02 08:09
PROVIDERS: ADMIT Hospitalist; ATTEND Hospitalist
DX: R11.2 Nausea with vomiting, unspecified (principal); E86.0 Dehydration; E87.1 Hypo-osmolality and hyponatremia; N17.9 Acute kidney failure, unspecified; R00.0 Tachycardia, unspecified; I12.9 Hypertensive chronic kidney disease with stage 1 through stage 4 chronic kidney disease, or unspecified chronic kidney disease; E10.22 Type 1 diabetes mellitus with diabetic chronic kidney disease; N18.9 Chronic kidney disease, unspecified; E10.43 Type 1 diabetes mellitus with diabetic autonomic (poly)neuropathy; K31.84 Gastroparesis; K21.9 Gastro-esophageal reflux disease without esophagitis; F12.90 Cannabis use, unspecified, uncomplicated; Z87.891 Personal history of nicotine dependence; Z79.899 Other long term (current) drug therapy; Z96.41 Presence of insulin pump (external) (internal)
CPT/HCPCS: 80048; 80053; 81001; 82948; 83690; 85025; 96361; 96374; 96375; 96376; 99285; G0378; J0360; J2405; J7030